=== PATIENT | female | born 1930 | race Caucasian/White ===

== ENCOUNTER 2017-02-25 08:58 | Emergency (ER) | payer MEDICARE, OTHER ==
[2017-02-25 09:14] VITALS: BP 139/61
[2017-02-25] MEDS ORDERED: Ondansetron 4 MG Tab.DIS PO ONE (09:34)
[2017-02-25] MEDS ORDERED: Acetaminophen 325 MG Tab PO ONE (09:34)
--- NOTE | 2017-02-25 11:14 | EDM.PDOC ---
ED HPI GENERAL MEDICAL PROBLEM - General Chief Complaint: Head Injury Stated Complaint: [facility] Time Seen by Provider: 02/25/17 09:20 Source of Information: Reports: Patient, RN Notes Reviewed - History of Present Illness INITIAL COMMENTS - FREE TEXT/NARRATIVE: 87-year-old female has been brought here by [facility] for evaluation of head injury. She slipped while in the bathroom about 1-1/2-2 hours ago striking the back of her head against the toilet. There was no LOC although she may have been dazed briefly. She did have some nausea and may have had a small emesis. Therefore she was transported here by ambulance. On arrival to ED she has no headache, nausea is gone. Feel very mildly dizzy but it seems that that may be somewhat chronic for her. No chest or abdominal pain. She lives at the [facility]. Posterior Head Pain Score (Numeric/FACES): 0 - Related Data Allergies Allergy/AdvReac Type Severity Reaction Status Date / Time No Known Allergies Allergy Verified 02/25/17 09:07 Home Meds: Home Meds Acetaminophen [Tylenol] 650 mg PO DAILY 02/25/17 [History] Aspirin [Ecotrin] 81 mg PO DAILY 02/25/17 [History] Escitalopram [Lexapro] 20 mg PO DAILY 02/25/17 [History] Furosemide [Lasix] 40 mg PO DAILY 02/25/17 [History] Insulin Aspart [NovoLOG] 7 unit SQ QPM 02/25/17 [History] Insulin Aspart [NovoLOG] 13 units SQ DAILY 02/25/17 [History] Insulin Aspart [NovoLOG] 16 unit SQ QAM 02/25/17 [History] Insulin Glargine,Hum.Rec.Anlog [Lantus Solostar] 30 units SQ DAILY 02/25/17 [ History] Levothyroxine 75 mcg PO DAILY 02/25/17 [History] Lutein/Minerals/Vit A,C & E [Ocuvite] 1 tab PO DAILY 02/25/17 [History] Memantine HCl [Namenda XR] 7 mg PO DAILY 02/25/17 [History] Multivitamin [Multivitamins] 1 tab PO DAILY 02/25/17 [History] Psyllium Husk [Metamucil] 2 cap PO QPM 02/25/17 [History] atorvaSTATin [Lipitor] 10 mg PO QPM 02/25/17 [History] Past Medical History Other HEENT History: wears glasses 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 History: Reports: CAD, 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: Musculoskeletal History: Reports: Osteoarthritis Endocrine/Metabolic History: Reports: Diabetes, Type I - Past Surgical History Musculoskeletal Surgical History: Reports: Joint Replacement Other Musculoskeletal Surgeries/Procedures:: left hip Social & Family History - Tobacco Use Smoking Status *Q: Never Smoker Second Hand Smoke Exposure: No - Caffeine Use Caffeine Use: Reports: Coffee - Recreational Drug Use Recreational Drug Use: No ED ROS GENERAL - Review of Systems Review Of Systems: See Below Constitutional: Reports: Weakness (Patient did feel somewhat weak and dizzy after the fall, that has all gotten much better) HEENT: Reports: Other (She did have mild headache, that is gone) 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: Denies: Chest Pain GI/Abdominal: Reports: Nausea, Vomiting (Patient may have had a very small emesis, no further vomiting, nausea is gone). Denies: Abdominal Pain Musculoskeletal: Denies: Neck Pain, Back Pain, Leg Pain, Joint Pain Skin: Reports: Bruising (She has a very small bruise to the back of her head) Neurological: Reports: Headache (She had very minimal headache initially, that is gone). Denies: Trouble Speaking, Difficulty Walking, Weakness ED EXAM, HEAD INJURY - Physical Exam Exam: See Below General Appearance: Alert, No Apparent Distress Head: Other (There is a very small bruise to the back of her head, no swelling at this time, no bony tenderness of the head or face) Eyes: Bilateral Eye: PERRL Throat/Mouth: Normal Inspection, Normal Oropharynx Respiratory: No Respiratory Distress, Lungs Clear, Normal Breath Sounds, Chest Non-Tender 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: Regular Rate, Rhythm GI/Abdominal Exam: Soft, Non-Tender Back Exam: No: CVA Tenderness (L), CVA Tenderness (R) Extremities: Normal Inspection, Normal Range of Motion, Other (Hips pelvis remainder of lower extremities nontender). No: Leg Pain Neurologic: No Motor/Sensory Deficits Skin: Normal Color, Warm/Dry Course - Vital Signs Last Recorded V/S: Last Vital Signs Temp 98.1 F 02/25/17 09:08 Pulse 72 02/25/17 09:08 Resp 12 02/25/17 09:08 BP 139/61 02/25/17 09:08 Pulse Ox 100 02/25/17 09:08 - Orders/Labs/Meds Meds: Medications Discontinued Medications Generic Name Dose Route Start Last Admin Trade Name Arlyn PRN Reason Stop Dose Admin Acetaminophen 650 mg 02/25/17 09:34 02/25/17 09:40 Tylenol PO 02/25/17 09:35 650 mg NOW ONE Administration Ondansetron HCl 4 mg 02/25/17 09:34 02/25/17 09:40 Zofran Odt PO 02/25/17 09:35 4 mg ONETIME ONE Administration - Re-Assessments/Exams Free Text/Narrative Re-Assessment/Exam: 02/25/17 11:10. Patient continues to have no headache while here in the ED, alert normal neurologic exam, no further nausea or vomiting. Therefore I have elected to observe her for a while, head CT not clinically indicated, patient and daughters present are comfortable with that. Discharge instructions as documented Departure - Departure Time of Disposition: 11:12 Disposition: DC/[facility] Condition: Fair Clinical Impression: Fall Qualifiers: Encounter type: initial encounter Qualified Code(s): W19.XXXA - Unspecified fall, initial encounter Scalp contusion Qualifiers: Encounter type: initial encounter Qualified Code(s): S00.03XA - Contusion of scalp, initial encounter - Discharge Information Instructions: Fall Prevention in the Home, [id number], Facial or Scalp Contusion, [id number] Referrals: Fan Tompkins MD [Primary Care Provider] - Forms: ED Department Discharge Additional Instructions: Rest, ice packs if needed for swelling, Tylenol 2-3 times daily if needed for headache or other discomfort, return to ED if you do develop severe headache, repetitive vomiting or symptoms otherwise worsening in any way, follow-up clinic in 2 days for recheck if possible or otherwise early next week.
== END 2017-02-25 11:33 ==
LOC: SUPCPDRO 08:58 → JD.ED 08:58
DX: S00.03XA Contusion of scalp, initial encounter (principal); I10 Essential (primary) hypertension; I25.10 Atherosclerotic heart disease of native coronary artery without angina pectoris; M19.90 Unspecified osteoarthritis, unspecified site; E10.9 Type 1 diabetes mellitus without complications; Z96.642 Presence of left artificial hip joint; Z79.899 Other long term (current) drug therapy; Z79.82 Long term (current) use of aspirin; Z79.4 Long term (current) use of insulin; W01.198A Fall on same level from slipping, tripping and stumbling with subsequent striking against other object, initial encounter; Y92.89 Other specified places as the place of occurrence of the external cause
CPT/HCPCS: 99284; A9270

== ENCOUNTER 2017-02-25 16:10 | Inpatient (IN) | payer MEDICARE, OTHER ==
[2017-02-25] MEDS ORDERED: fentaNYL 100 MCG/2 ML SDV IVPUSH ONE (16:44)
--- NOTE | 2017-02-25 16:46 | EDM.PDOC ---
ED HPI GENERAL MEDICAL PROBLEM - General Chief Complaint: Upper Extremity Injury/Pain Stated Complaint: [facility] Time Seen by Provider: 02/25/17 16:29 Source of Information: Reports: Patient History Limitations: Reports: No Limitations - History of Present Illness INITIAL COMMENTS - FREE TEXT/NARRATIVE: The patient is an 87-year-old female comes in for evaluation after a fall. She was seen here this morning after a fall. At that time, her evaluation was negative and she was discharged home. This after noon she had a new fall. She was sitting in her recliner chair. She got up to get a glass of water. She fell somewhere in the kitchen. She is not exactly sure how it happened. She normally walks with a walker but was not using it when she fell. She doesn't think she passed out. She doesn't recall feeling lightheaded or having any chest pain, shortness of breath, or palpitations. Continues to deny headache. However she did have an episode of vomiting on her way home. She is mostly complaining of right shoulder pain. Pain in her right shoulder is moderate to severe, worse with arm movement. Denies numbness or weakness. Denies additional injury. No back pain. No chest pain or abdominal pain. She had some mild right hip pain but she states that this is resolved and does not have any additional lower extremity pain. Denies recent illness. Right Shoulder Pain Score (Numeric/FACES): 10 - Related Data Allergies Allergy/AdvReac Type Severity Reaction Status Date / Time No Known Allergies Allergy Verified 02/25/17 09:07 Home Meds: Home Meds Acetaminophen [Acetaminophen 8 Hour] 650 mg PO Q8H PRN 02/25/17 [History] Acetaminophen [Tylenol] 650 mg PO BID 02/25/17 [History] Amoxicillin 2,000 mg PO ONETIME PRN 02/25/17 [History] Aspirin [Ecotrin] 81 mg PO DAILY 02/25/17 [History] Biotin 10,000 mcg PO DAILY PRN 02/25/17 [History] Bisacodyl [Dulcolax] 10 mg RECTAL DAILY PRN 02/25/17 [History] Bismuth Subsalicylate [Pepto Bismol] 1 ml PO DAILY PRN 02/25/17 [History] Chlorhexidine Gluconate [Peridex 0.12% Rinse] 1 tsp PO TID 02/25/17 [History] Docusate Sodium [Colace] 100 mg PO BID PRN 02/25/17 [History] Escitalopram [Lexapro] 20 mg PO DAILY 02/25/17 [History] Furosemide [Lasix] 40 mg PO DAILY 02/25/17 [History] Hydrocortisone [Hydrocortisone 2.5% Crm] 1 g TOP TID PRN 02/25/17 [History] Insulin Aspart [NovoLOG] 7 unit SQ QPM 02/25/17 [History] Insulin Aspart [NovoLOG] 13 units SQ DAILY 02/25/17 [History] Insulin Aspart [NovoLOG] 16 unit SQ QAM 02/25/17 [History] Insulin Glargine,Hum.Rec.Anlog [Lantus Solostar] 30 units SQ DAILY 02/25/17 [ History] L Acidophil/B Lactis/B Longum [Florajen3] 460 mg PO DAILY 02/25/17 [History] Levothyroxine 75 mcg PO DAILY 02/25/17 [History] Loperamide [Imodium AD] 4 mg PO ONETIME PRN 02/25/17 [History] Lutein/Minerals/Vit A,C & E [Ocuvite] 1 tab PO DAILY 02/25/17 [History] Magnesium Hydroxide [Milk of Magnesia] 30 ml PO DAILY PRN 02/25/17 [History] Memantine HCl [Namenda XR] 7 mg PO DAILY 02/25/17 [History] Multivitamin [Multivitamins] 1 tab PO DAILY 02/25/17 [History] Psyllium Husk [Metamucil] 2 cap PO QPM 02/25/17 [History] Simethicone [Gas-X] 125 mg PO Q4H PRN 02/25/17 [History] Trolamine Salicylate/Aloe Vera [Aspercreme 10%] 1 g TOP DAILY PRN 02/25/17 [ History] atorvaSTATin [Lipitor] 10 mg PO QPM 02/25/17 [History] Past Medical History Other HEENT History: wears glasses 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 History: Reports: CAD, 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: Musculoskeletal History: Reports: Osteoarthritis Endocrine/Metabolic History: Reports: Diabetes, Type I - Past Surgical History Musculoskeletal Surgical History: Reports: Joint Replacement Other Musculoskeletal Surgeries/Procedures:: left hip Social & Family History - Family History Family Medical History: Noncontributory - Tobacco Use Smoking Status *Q: Never Smoker Second Hand Smoke Exposure: No - Caffeine Use Caffeine Use: Reports: None - Recreational Drug Use Recreational Drug Use: No Review of Systems - Review of Systems Review Of Systems: See Below Constitutional: Denies: Fever Eyes: Reports: No Symptoms Ears: Reports: No Symptoms Respiratory: Denies: Shortness of Breath, Cough 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: Denies: Chest Pain GI/Abdominal: Reports: Vomiting. Denies: Abdominal Pain Genitourinary: Reports: No Symptoms Musculoskeletal: Reports: Shoulder Pain, Arm Pain. Denies: Back Pain, Leg Pain Skin: Reports: No Symptoms Neurological: Denies: Headache Psychiatric: Reports: No Symptoms ED EXAM, GENERAL - Physical Exam Exam: See Below Exam Limited By: No Limitations General Appearance: Alert, WD/WN, No Apparent Distress Eye Exam: Bilateral Eye: EOMI, PERRL Ears: Normal External Exam Nose: Normal Inspection Throat/Mouth: Normal Inspection, Normal Voice, No Airway Compromise Head: Atraumatic, Normocephalic Neck: Normal Inspection, Supple, Non-Tender, Full Range of Motion Respiratory/Chest: No Respiratory Distress, Lungs Clear, Normal Breath Sounds, Chest Non-Tender 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: Normal Peripheral Pulses, Regular Rate, Rhythm, No Murmur GI/Abdominal: Soft, Non-Tender, No Distention Extremities: Other (Right upper extremity: No clavicle tenderness. Mild right shoulder tenderness in the anterior aspect. No visible deformity. Diffuse humeral tenderness, no appreciable swelling or deformity. Mild elbow tenderness , no swelling or deformity. No forearm, wrist, or hand tenderness. Distal motor/ circulation/perfusion intact. 2+ radial pulse. Skin intact throughout. Remaining extremities exams normal) Neurological: Alert, Oriented, No Motor/Sensory Deficits Psychiatric: Normal Affect, Normal Mood Skin Exam: Warm, Dry, Intact, Normal Color, No Rash Course - Vital Signs Last Recorded V/S: Last Vital Signs Temp 37.1 C 02/26/17 03:38 Pulse 78 02/26/17 03:38 Resp 16 02/26/17 00:12 BP 139/98 H 02/26/17 03:46 Pulse Ox 98 02/26/17 03:38 - Orders/Labs/Meds Orders: Active Orders 24 hr Category Date Time Status EKG 12 Lead [EKG Documentation Completion] [RC] STAT Care 02/25/17 18:23 Active Chest 1V Frontal [CR] Stat Exams 02/25/17 16:44 Taken Elbow Min 3V Rt [CR] Stat Exams 02/25/17 16:45 Taken Humerus Rt [CR] Stat Exams 02/25/17 16:45 Taken Shoulder Comp Rt [CR] Stat Exams 02/25/17 16:45 Taken Medication Orders Acetaminophen (Tylenol) 650 mg PO Q4H PRN PRN Reason: Pain (Mild 1-3)/fever Hydrocodone Bitart/Acetaminophen ([place] 325-5 Mg) 1 tab PO Q4H PRN PRN Reason: Pain (moderate 4-6) Last Admin: 02/26/17 04:56 Dose: 1 tab Admin: 02/25/17 22:31 Dose: 1 tab Albuterol/Ipratropium (Duoneb 3.0-0.5 Mg/3 Ml) 3 ml NEB Q4H PRN PRN Reason: Shortness Of Breath/wheezing Aspirin (Halfprin) 81 mg PO DAILY [facility] Bisacodyl (Dulcolax) 5 mg PO DAILY PRN PRN Reason: Constipation Bismuth Subsalicylate (Pepto Bismol) 1 ml PO DAILY PRN PRN Reason: Heartburn Chlorhexidine Gluconate (Peridex 0.12% Rinse) 5 ml PO TID [facility] Last Admin: 02/25/17 22:30 Dose: 5 ml Citalopram Hydrobromide (Celexa) 40 mg PO DAILY [facility] Dextrose/Water (Dextrose 50% In Water) 50 ml IVPUSH ASDIRECTED PRN PRN Reason: Hypoglycemia Docusate Sodium (Colace) 100 mg PO BID PRN PRN Reason: Constipation Hydralazine HCl (Apresoline) 10 mg IVPUSH Q4H PRN PRN Reason: Hypertension Hydromorphone HCl (Dilaudid) 0.25 mg IVPUSH Q2H PRN PRN Reason: Pain (severe 7-10) Last Admin: 02/26/17 00:20 Dose: 0.25 mg Promethazine HCl 12.5 mg/ (Sodium Chloride) 50.5 mls @ 100 mls/hr IV Q6H PRN PRN Reason: Nausea/Vomiting Sodium Chloride (Normal Saline) 1,000 mls @ 75 mls/hr IV ASDIRECTED [facility] Last Admin: 02/25/17 22:37 Dose: 75 mls/hr Insulin Aspart (Novolog) 7 unit SUBCUT QPM [facility] Insulin Aspart (Novolog) 16 unit SUBCUT QAM [facility] Insulin Aspart (Novolog) 13 unit SUBCUT WITHLUNCH [facility] Insulin Detemir (Levemir) 30 unit SUBCUT DAILY [facility] Levothyroxine Sodium (Levothyroxine) 75 mcg PO DAILY [facility] Loperamide HCl (Imodium) 4 mg PO ONETIME PRN PRN Reason: Diarrhea Lorazepam (Ativan) 0.25 mg IV Q6H PRN PRN Reason: Anxiety Magnesium Hydroxide (Milk Of Magnesia) 30 ml PO DAILY PRN PRN Reason: Constipation Magnesium Sulfate (Pharmacy To Dose - Magnesium Replacement) 1 dose .XX ASDIRECTED [facility] Metoprolol Tartrate (Lopressor) 5 mg IVPUSH Q4H PRN PRN Reason: Tachycardia Morphine Sulfate (Morphine) 2 mg IVPUSH Q2H PRN PRN Reason: Pain Last Admin: 02/25/17 19:03 Dose: 2 mg Multivitamins (Thera) 1 each PO DAILY [facility] Non-Formulary Medication (Biotin [Biotin]) 10,000 mcg PO DAILY PRN PRN Reason: Dryness Non-Formulary Medication (Hydrocortisone) 1 g TOP TID PRN PRN Reason: Rash Non-Formulary Medication (L Acidophil/B Lactis/B Longum [Florajen3]) 460 mg PO DAILY [facility] Non-Formulary Medication (Memantine Hcl) 7 mg PO DAILY [facility] Non-Formulary Medication (Trolamine Salicylate/Aloe Vera) 1 g TOP DAILY PRN PRN Reason: Pain Ondansetron HCl (Zofran) 4 mg IV Q6H PRN PRN Reason: Nausea/Vomiting Polyethylene Glycol (Miralax) 17 gm PO DAILY PRN PRN Reason: Constipation Potassium Chloride (Pharmacy To Dose - Potassium Replacement) 1 dose .XX ASDIRECTED [facility] Psyllium Husk (Metamucil Sugar Free) 2 packet PO QPM [facility] Senna/Docusate Sodium (Senna Plus) 1 tab PO BID PRN PRN Reason: Constipation Simethicone (Simethicone) 125 mg PO Q4H PRN PRN Reason: Gas Simvastatin (Zocor) 10 mg PO BEDTIME [facility] Last Admin: 02/25/17 22:30 Dose: 10 mg Temazepam (Restoril) 7.5 mg PO BEDTIME PRN PRN Reason: Sleep Vit A/Vit C/Vit E/Selen/Cu/Zn/Lutei (Icaps Mv) 1 tab PO DAILY DOUG Labs: Laboratory Tests 02/25/17 02/25/17 02/25/17 Range/Units 16:30 16:30 16:30 WBC 12.32 H (3.98-10.04) K/mm3 RBC 3.81 L (3.98-5.22) M/mm3 Hgb 11.7 (11.2-15.7) gm/L Hct 35.5 (34.1-44.9) % MCV 93.2 (79.4-94.8) fl MCH 30.7 (25.6-32.2) pg MCHC 33.0 (32.2-35.5) g/dl RDW Std Deviation 44.6 (36.4-46.3) fL Plt Count 230 (182-369) K/mm3 MPV 10.8 (9.4-12.3) fl Neut % (Auto) 78.8 H (34.0-71.1) % Lymph % (Auto) 10.5 L (19.3-51.7) % [place] % (Auto) 8.8 (4.7-12.5) % Eos % (Auto) 1.2 (0.7-5.8) Baso % (Auto) 0.3 (0.1-1.2) % Neut # (Auto) 9.71 H (1.56-6.13) K/mm3 Lymph # (Auto) 1.29 (1.18-3.74) K/mm3 [place] # (Auto) 1.08 H (0.24-0.36) K/mm3 Eos # (Auto) 0.15 (0.04-0.36) K/mm3 Baso # (Auto) 0.04 (0.01-0.08) K/mm3 Sodium 140 (136-145) mEq/L Potassium 4.0 (3.5-5.1) mEq/L Chloride 103 (98-107) mEq/L Carbon Dioxide 28 (21-32) mEq/L Anion Gap 13.0 (5-15) BUN 9 (7-18) mg/dL Creatinine 1.5 H (0.55-1.02) mg/dL Est Cr Clr Drug Dosing 25.20 mL/min Estimated GFR (MDRD) 33 (>60) mL/min BUN/Creatinine Ratio 6.0 L (14-18) Glucose 152 H (83-115) mg/dL Calcium 9.0 (8.5-10.1) mg/dL Total Bilirubin 0.6 (0.2-1.0) mg/dL AST 21 (15-37) U/L ALT 19 (14-59) U/L Alkaline Phosphatase 83 (46-116) U/L CK-MB (CK-2) 0.7 (0-3.6) ng/ml Troponin I 0.085 H* (0.00-0.056) ng/mL Total Protein 7.1 (6.4-8.2) g/dl Albumin 3.4 (3.4-5.0) g/dl Globulin 3.7 gm/dL Albumin/Globulin Ratio 0.9 L (1-2) Meds: Medications Generic Name Dose Route Start Last Admin Trade Name Freq PRN Reason Stop Dose Admin Acetaminophen 650 mg 02/25/17 20:10 Tylenol PO Q4H PRN Pain (Mild 1-3)/fever Hydrocodone Bitart/Acetaminophen 1 tab 02/25/17 20:10 02/26/17 04:56 [place] 325-5 Mg PO 1 tab Q4H PRN Administration Pain (moderate 4-6) Albuterol/Ipratropium 3 ml 02/25/17 20:10 Duoneb 3.0-0.5 Mg/3 Ml NEB Q4H PRN Shortness Of Breath/wheezing Aspirin 81 mg 02/26/17 09:00 Halfprin PO DAILY DOUG Bisacodyl 5 mg 02/25/17 20:10 Dulcolax PO DAILY PRN Constipation Bismuth Subsalicylate 1 ml 02/25/17 20:18 Pepto Bismol PO DAILY PRN Heartburn Chlorhexidine Gluconate 5 ml 02/25/17 21:00 02/25/17 22:30 Peridex 0.12% Rinse PO 5 ml TID DOUG Administration Citalopram Hydrobromide 40 mg 02/26/17 09:00 Celexa PO DAILY DOUG Dextrose/Water 50 ml 02/25/17 20:59 Dextrose 50% In Water IVPUSH ASDIRECTED PRN Hypoglycemia Docusate Sodium 100 mg 02/25/17 20:10 Colace PO BID PRN Constipation Hydralazine HCl 10 mg 02/25/17 20:20 Apresoline IVPUSH Q4H PRN Hypertension Hydromorphone HCl 0.25 mg 02/25/17 20:10 02/26/17 00:20 Dilaudid IVPUSH 0.25 mg Q2H PRN Administration Pain (severe 7-10) Promethazine HCl 12.5 mg/ 50.5 mls @ 100 mls/hr 02/25/17 20:10 Sodium Chloride IV Q6H PRN Nausea/Vomiting Sodium Chloride 1,000 mls @ 75 mls/hr 02/25/17 20:15 02/25/17 22:37 Normal Saline IV 75 mls/hr ASDIRECTED [facility] Administration Insulin Aspart 7 unit 02/26/17 18:00 Novolog SUBCUT QPM [facility] Insulin Aspart 16 unit 02/26/17 08:00 Novolog SUBCUT QAM [facility] Insulin Aspart 13 unit 02/26/17 11:00 Novolog SUBCUT WITHLUNCH [facility] Insulin Detemir 30 unit 02/26/17 09:00 Levemir SUBCUT DAILY [facility] Levothyroxine Sodium 75 mcg 02/26/17 09:00 Levothyroxine PO DAILY [facility] Loperamide HCl 4 mg 02/25/17 20:36 Imodium PO ONETIME PRN Diarrhea Lorazepam 0.25 mg 02/25/17 20:10 Ativan IV Q6H PRN Anxiety Magnesium Hydroxide 30 ml 02/25/17 20:18 Milk Of Magnesia PO DAILY PRN Constipation Magnesium Sulfate 1 dose 02/25/17 20:30 Pharmacy To Dose - Magnesium Replacement .XX ASDIRECTED [facility] Metoprolol Tartrate 5 mg 02/25/17 20:20 Lopressor IVPUSH Q4H PRN Tachycardia Morphine Sulfate 2 mg 02/25/17 18:55 02/25/17 19:03 Morphine IVPUSH 2 mg Q2H PRN Administration Pain Multivitamins 1 each 02/26/17 09:00 Thera PO DAILY D[facility] Non-Formulary Medication 10,000 mcg 02/25/17 20:18 Biotin [Biotin] PO DAILY PRN Dryness Non-Formulary Medication 1 g 02/25/17 20:18 Hydrocortisone TOP TID PRN Rash Non-Formulary Medication 460 mg 02/26/17 09:00 L Acidophil/B Lactis/B Longum [Florajen3] PO DAILY [facility] Non-Formulary Medication 7 mg 02/26/17 09:00 Memantine Hcl PO DAILY [facility] Non-Formulary Medication 1 g 02/25/17 20:18 Trolamine Salicylate/Aloe Vera TOP DAILY PRN Pain Ondansetron HCl 4 mg 02/25/17 20:10 Zofran IV Q6H PRN Nausea/Vomiting Polyethylene Glycol 17 gm 02/25/17 20:10 Miralax PO DAILY PRN Constipation Potassium Chloride 1 dose 02/25/17 20:30 Pharmacy To Dose - Potassium Replacement .XX ASDIRECTED [facility] Psyllium Husk 2 packet 02/26/17 18:00 Metamucil Sugar Free PO QPM [facility] Senna/Docusate Sodium 1 tab 02/25/17 20:10 Senna Plus PO BID PRN Constipation Simethicone 125 mg 02/25/17 20:18 Simethicone PO Q4H PRN Gas Simvastatin 10 mg 02/25/17 21:00 02/25/17 22:30 Zocor PO 10 mg BEDTIME DOUG Administration Temazepam 7.5 mg 02/25/17 20:10 Restoril PO BEDTIME PRN Sleep Vit A/Vit C/Vit E/Selen/Cu/Zn/Lutei 1 tab 02/26/17 09:00 Icaps Mv PO DAILY [facility] Discontinued Medications Generic Name Dose Route Start Last Admin Trade Name Freq PRN Reason Stop Dose Admin Docusate Sodium 100 mg 02/25/17 20:18 Colace PO BID PRN Constipation Fentanyl 25 mcg 02/25/17 16:44 02/25/17 17:18 Sublimaze IVPUSH 02/25/17 16:45 25 mcg ONETIME ONE Administration Insulin Aspart 13 unit 02/26/17 09:00 Novolog SUBCUT DAILY [facility] - Radiology Interpretation Free Text/Narrative:: CT head neg. - Re-Assessments/Exams Free Text/Narrative Re-Assessment/Exam: 02/25/17 xr shows proximal humerus fracture with mild displacement. Will treat with sling. No additional bony abnormality noted. EKG shows NSR, no ST elevation, intervals normal. Trop mildly elevated at 0.085 - possible that her falls are related to syncopal episodes (difficult to discern in this alzheimer' s patient) vs. acute coronary syndrome vs. trop leak. She has now had two significant falls today requiring ED evaluation which is unusual for her. She also now has a broken arm so will not be able to safely ambulate with a walker. It is unsafe for her to back to assisted living at this time. Discussed with Dr. Currie who agrees to admit the patient. Departure - Departure Time of Disposition: 18:00 Disposition: Admitted As Inpatient 67 Clinical Impression: Acute coronary syndrome, Renal insufficiency Fall Qualifiers: Encounter type: initial encounter Qualified Code(s): W19.XXXA - Unspecified fall, initial encounter Fracture, humerus, anatomical neck Qualifiers: Encounter type: initial encounter Fracture type: closed Laterality: right Qualified Code(s): S42.291A - Other displaced fracture of upper end of right humerus, initial encounter for closed fracture - Discharge Information - My Orders Last 24 Hours: My Active Orders 02/25/17 16:44 Chest 1V Frontal [CR] Stat 02/25/17 16:45 Elbow Min 3V Rt [CR] Stat Humerus Rt [CR] Stat Shoulder Comp Rt [CR] Stat 02/25/17 18:23 EKG 12 Lead [EKG Documentation Completion] [RC] STAT - Assessment/Plan Last 24 Hours: My Active Orders 02/25/17 16:44 Chest 1V Frontal [CR] Stat 02/25/17 16:45 Elbow Min 3V Rt [CR] Stat Humerus Rt [CR] Stat Shoulder Comp Rt [CR] Stat 02/25/17 18:23 EKG 12 Lead [EKG Documentation Completion] [RC] STAT
--- NOTE | 2017-02-25 17:37 | CT ---
Head CT Technique: Multiple axial sections through the brain were obtained. Intravenous contrast was not utilized. Comparison: No previous intracranial imaging is available. Findings: Ventricles along with basal cisterns and sulci over the convexities are moderately prominent. 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 Mild diminished density is noted within the subcortical and periventricular white matter compatible with small vessel ischemic demyelination change. No other abnormal parenchymal densities are seen. No evidence of intracranial hemorrhage. No midline shift or mass effect is seen. Slight atherosclerotic calcification is seen within the left vertebral vessel and within the carotid siphon. Bone window settings were reviewed which shows no discrete calvarial abnormality. Mild mucosal thickening seen within the inferior right maxillary sinus which is likely chronic. Impression: 1. Sinus findings which are felt to be chronic. 2. Mild senescent change as described above. 3. Nothing acute is appreciated on noncontrast head CT exam. Diagnostic code #2
[2017-02-25] MEDS ORDERED: Morphine 4 MG/ML Syringe IVPUSH PRN (18:55)
--- NOTE | 2017-02-25 20:01 | PCM.HP ---
H&P History of Present Illness - General Date of Service: 02/25/17 Admit Problem/Dx: Admission Diagnosis/Problem Admission Diagnosis/Problem Syncope and collapse Source of Information: Patient, Old Records, Provider, RN Notes Reviewed History Limitations: Reports: Physical Impairment, Other (Baseline Dementia) - History of Present Illness Initial Comments - Free Text/Narative: This is an 87 yo elderly white female with past medical hx/o impaired vision, hypertension, coronary artery disease, osteoarthritis/DJD, osteoporosis, type 1 diabetes, hypothyroidism, depression, and memory impairment/dementia who presents to the emergency department for evaluation after a recurrent fall and was found to have right humerus fracture. Patient was brought here early this morning secondary to what appears to be mechanical fall. She was in the bathroom when she slipped and struck the back of her head against the toilet. Patient reports no prodromal symptoms. No reports of loss of consciousness. She did have some nausea and small emesis at that time. She admits to some mild dizziness but this appears to be chronic to her. Her initial workup this morning was fairly benign. Patient came back this afternoon after she fell somewhere in the kitchen for the second time. Patient normally uses a walker to ambulate but at that time, she was not using it. Again, there were no reports of prodromal symptoms. No loss of consciousness. She does not recall feeling lightheaded or dizzy or any symptoms prior to the fall. She denies any headaches or any neurologic deficits. Currently, she reports right shoulder pain that is moderate to severe in nature and worse with movement. She denies any associated numbness weakness or tingling. She denies any neck, back, or flank pain. She admits however to some mild right hip pain but has since resolved. She denies any systemic symptoms. She further denies any other lower extremity pain. Follow-up workup lab in the emergency department shows a CBC remarkable for WBC of 12.32, RBC of 3.81, neutrophils of 78.8%, lymphocytes of 10.5%. Her chemistry is remarkable for creatinine of 1.5, glucose of 152, and troponin of 0.085. Head CT scan report reads no acute intra-cranial abnormality. Chest x- ray shows no acute abnormality. Elbow and shoulder x-ray both shows noted acute abnormality. Right humerus x-ray is positive for proximal fracture-surgical neck. Patient is being admitted for medical management of proximal humerus fracture and status post fall. She is DNR/DNI. Right Shoulder Pain Score (Numeric/FACES): 10 R Pelvis Pain Score (Numeric/FACES): 10 - Related Data Allergies/Adverse Reactions: Allergies Allergy/AdvReac Type Severity Reaction Status Date / Time No Known Allergies Allergy Verified 02/25/17 09:07 Home Medications: Home Meds Acetaminophen [Acetaminophen 8 Hour] 650 mg PO Q8H PRN 02/25/17 [History] Acetaminophen [Tylenol] 650 mg PO BID 02/25/17 [History] Amoxicillin 2,000 mg PO ONETIME PRN 02/25/17 [History] Aspirin [Ecotrin] 81 mg PO DAILY 02/25/17 [History] Biotin 10,000 mcg PO DAILY PRN 02/25/17 [History] Bisacodyl [Dulcolax] 10 mg RECTAL DAILY PRN 02/25/17 [History] Bismuth Subsalicylate [Pepto Bismol] 1 ml PO DAILY PRN 02/25/17 [History] Chlorhexidine Gluconate [Peridex 0.12% Rinse] 1 tsp PO TID 02/25/17 [History] Docusate Sodium [Colace] 100 mg PO BID PRN 02/25/17 [History] Escitalopram [Lexapro] 20 mg PO DAILY 02/25/17 [History] Furosemide [Lasix] 40 mg PO DAILY 02/25/17 [History] Hydrocortisone [Hydrocortisone 2.5% Crm] 1 g TOP TID PRN 02/25/17 [History] Insulin Aspart [NovoLOG] 7 unit SQ QPM 02/25/17 [History] Insulin Aspart [NovoLOG] 13 units SQ DAILY 02/25/17 [History] Insulin Aspart [NovoLOG] 16 unit SQ QAM 02/25/17 [History] Insulin Glargine,Hum.Rec.Anlog [Lantus Solostar] 30 units SQ DAILY 02/25/17 [ History] L Acidophil/B Lactis/B Longum [Florajen3] 460 mg PO DAILY 02/25/17 [History] Levothyroxine 75 mcg PO DAILY 02/25/17 [History] Loperamide [Imodium AD] 4 mg PO ONETIME PRN 02/25/17 [History] Lutein/Minerals/Vit A,C & E [Ocuvite] 1 tab PO DAILY 02/25/17 [History] Magnesium Hydroxide [Milk of Magnesia] 30 ml PO DAILY PRN 02/25/17 [History] Memantine HCl [Namenda XR] 7 mg PO DAILY 02/25/17 [History] Multivitamin [Multivitamins] 1 tab PO DAILY 02/25/17 [History] Psyllium Husk [Metamucil] 2 cap PO QPM 02/25/17 [History] Simethicone [Gas-X] 125 mg PO Q4H PRN 02/25/17 [History] Trolamine Salicylate/Aloe Vera [Aspercreme 10%] 1 g TOP DAILY PRN 02/25/17 [ History] atorvaSTATin [Lipitor] 10 mg PO QPM 02/25/17 [History] Past Medical History Other HEENT History: wears glasses 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 History: Reports: CAD, Hypertension [employer] History: Reports: Musculoskeletal History: Reports: Osteoarthritis Endocrine/Metabolic History: Reports: Diabetes, Type I - Past Surgical History Musculoskeletal Surgical History: Reports: Joint Replacement Other Musculoskeletal Surgeries/Procedures:: left hip Social & Family History - Family History Family Medical History: Noncontributory - Tobacco Use Smoking Status *Q: Never Smoker Second Hand Smoke Exposure: No - Caffeine Use Caffeine Use: Reports: None - Recreational Drug Use Recreational Drug Use: No H&P Review of Systems - Review of Systems: Review Of Systems: See Below General: Reports: Weakness. Denies: Fever, Chills, Malaise, Fatigue HEENT: Reports: No Symptoms Pulmonary: Denies: Shortness of Breath Gastrointestinal: Reports: Nausea, Vomiting. Denies: Abdominal Pain Genitourinary: Reports: No Symptoms Musculoskeletal: Reports: Shoulder Pain, Arm Pain, Joint Pain Skin: Reports: Bruising. Denies: Cyanosis, Mottled, Pallor, Diaphoresis, Rash, Erythema, Wound Psychiatric: Denies: Depression, Anxiety, Agitation, Cravings, Hallucinations, Suicidal Ideation Neurological: Reports: Confusion (Baseline Dementia), Difficulty Walking, Weakness, Gait Disturbance. Denies: Dizziness, Headache, Numbness, Paresthesia , Pre-Existing Deficit, Seizure, Syncope, Tingling, Tremors, Trouble Speaking, Change in Speech Hematologic/Lymphatic: Reports: No Symptoms Immunologic: Reports: No Symptoms Exam - Exam Exam: See Below - Vital Signs Vital Signs: Last Vital Signs Temp 36.6 C 02/25/17 16:16 Pulse 77 02/25/17 16:16 Resp 20 02/25/17 16:16 BP 126/61 02/25/17 16:16 Pulse Ox 99 02/25/17 16:16 Weight: 162 kg - Exam General: Alert, Cooperative, Mild Distress HEENT: Conjunctiva Clear, EACs Clear, Mucosa Moist & [place], Nares Patent, Normal Nasal Septum, Pupils Equal, Pupils Reactive, TMs Clear, Other (bruise at the back of her head, no bony tenderness or edema), PERRLA Neck: Supple, Trachea Midline, +2 Carotid Pulse wo Bruit. No: JVD Lungs: Normal Respiratory Effort, Decreased Breath Sounds 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: Regular Rate, Regular Rhythm. No: Systolic Murmur, Diastolic Murmur GI/Abdominal Exam: Normal Bowel Sounds, Soft, Non-Tender, No Organomegaly, No Distention, No Abnormal Bruit, No Mass (Female) Exam: Deferred, Other (No suprapubic tenderness) Rectal (Female) Exam: Deferred Back Exam: Normal Inspection, Decreased Range of Motion, Paraspinal Tenderness, Vertebral Tenderness Extremities: Normal Inspection, Normal Range of Motion, Non-Tender, No Pedal Edema, Normal Capillary Refill, Limited Range of Motion (Unable to lift leg up due to pain), Other (Right Shoulder: Tender on palpation. No obvious deformity. Diffuse humeral tenderness, no swelling or deformity. Elbow is midly tender, no edema or defomity. No wirst or hand tenderness) Peripheral Pulses: 2+: Posterior Tibial (L), Posterior Tibial (R), Dorsalis Pedis (L), Dorsalis Pedis (R) Skin: Warm, Dry, Intact Neuro Extensive - Mental Status: Alert, Oriented x3. No: Memory Intact Neuro Extensive - Motor, Sensory, Reflexes: CN II-XII Intact (very limited due to pain/discomfort with movement ), Abnormal Gait Psychiatric: Alert, Normal Affect, Normal Mood. No: Anxious, Depressed, Agitated, Suicidal Ideation, Homicidal Ideation, Hallucinations - Patient Data Lab Results Last 24 hrs: Laboratory Results - last 24 hr 02/25/17 02/25/17 Range/Units 16:30 16:30 WBC 12.32 H (3.98-10.04) K/mm3 RBC 3.81 L (3.98-5.22) M/mm3 Hgb 11.7 (11.2-15.7) gm/L Hct 35.5 (34.1-44.9) % MCV 93.2 (79.4-94.8) fl MCH 30.7 (25.6-32.2) pg MCHC 33.0 (32.2-35.5) g/dl RDW Std Deviation 44.6 (36.4-46.3) fL Plt Count 230 (182-369) K/mm3 MPV 10.8 (9.4-12.3) fl Neut % (Auto) 78.8 H (34.0-71.1) % Lymph % (Auto) 10.5 L (19.3-51.7) % [place] % (Auto) 8.8 (4.7-12.5) % Eos % (Auto) 1.2 (0.7-5.8) Baso % (Auto) 0.3 (0.1-1.2) % Neut # (Auto) 9.71 H (1.56-6.13) K/mm3 Lymph # (Auto) 1.29 (1.18-3.74) K/mm3 [place] # (Auto) 1.08 H (0.24-0.36) K/mm3 Eos # (Auto) 0.15 (0.04-0.36) K/mm3 Baso # (Auto) 0.04 (0.01-0.08) K/mm3 Sodium 140 (136-145) mEq/L Potassium 4.0 (3.5-5.1) mEq/L Chloride 103 (98-107) mEq/L Carbon Dioxide 28 (21-32) mEq/L Anion Gap 13.0 (5-15) BUN 9 (7-18) mg/dL Creatinine 1.5 H (0.55-1.02) mg/dL Est Cr Clr Drug Dosing 25.20 mL/min Estimated GFR (MDRD) 33 (>60) mL/min BUN/Creatinine Ratio 6.0 L (14-18) Glucose 152 H (83-115) mg/dL Calcium 9.0 (8.5-10.1) mg/dL Total Bilirubin 0.6 (0.2-1.0) mg/dL AST 21 (15-37) U/L ALT 19 (14-59) U/L Alkaline Phosphatase 83 (46-116) U/L Troponin I 0.085 H* (0.00-0.056) ng/mL Total Protein 7.1 (6.4-8.2) g/dl Albumin 3.4 (3.4-5.0) g/dl Globulin 3.7 gm/dL Albumin/Globulin Ratio 0.9 L (1-2) Result Diagrams: 02/26/17 06:07 02/26/17 06:07 *Q Meaningful Use (ADM) - VTE *Q VTE Criteria *Q: - Stroke *Q Stroke Criteria *Q: - AMI *Q AMI Criteria *Q: Problem List Initiated/Reviewed/Updated: Yes Orders Last 24hrs: Active Orders 24 hr Category Date Time Status Patient Status [ADT] Routine ADT 02/25/17 18:42 Active EKG 12 Lead [EKG Documentation Completion] [RC] STAT Care 02/25/17 18:23 Active Chest 1V Frontal [CR] Stat Exams 02/25/17 16:44 Taken Elbow Min 3V Rt [CR] Stat Exams 02/25/17 16:45 Taken Humerus Rt [CR] Stat Exams 02/25/17 16:45 Taken Shoulder Comp Rt [CR] Stat Exams 02/25/17 16:45 Taken Morphine Med 02/25/17 18:55 Active 2 mg IVPUSH Q2H PRN Medication Orders Morphine Sulfate (Morphine) 2 mg IVPUSH Q2H PRN PRN Reason: Pain Last Admin: 02/25/17 19:03 Dose: 2 mg Assessment/Plan Comment:: Assessment/Plan; Acute: Recurrent Fall - Unclear in etiology but highly suspect due to mechanical fall - Risk Factors: Impaired Vision, DM, HTN, Osteoporosis, Dementia and OA/DJD - No documented hypoglycemia or hypotension - She is not on narcotics - PT/OT to eval - Fall Precautions - Vit D and Thyroid Panel Right Humerus Fracture - X-Ray: Surgical Neck Fx Within Right Proximal Humerus - S/p Fall - Conservative Management - PT/OT to follow - Sling and Swathe - Pain Management - Follow up Ortho Outpatient since we do not have inpatient services available Scalp Contusion - S/p Fall - Head CT scan: no acute intra-cranial abnormality - No neurologic complaints - Monitor Elevated Troponin Level - Likely from troponin leak - Initial Troponin is 0.085 - Initial EKG shows no acute ST-T wave changes - CE x2 and follow up EKG in AM High Fall Risk Chronic: Impaired Vision HTN HLD CAD DM2 Hypothyroidism OA/DJD Osteoporosis, DEXA Scan 01/14/17 Dementia Depression Plan: Admit to Med-Surg Routine AM Labs Resume Home Meds Fall Precautions PT/OT consult Dietary consult for Osteoporosis SW/CM for d/c planning Possible Rehab/SNF if not NH placement Additional orders as above Code status: DNR/DNI
[2017-02-25] MEDS ORDERED: LORazepam 2 MG/ML MDV IV PRN (20:10)
[2017-02-25] MEDS ORDERED: Temazepam 7.5 MG Cap PO PRN (20:10)
[2017-02-25] MEDS ORDERED: Acetaminophen 325 MG Tab PO PRN (20:10)
[2017-02-25] MEDS ORDERED: Polyethylene Glycol 3350 Powder 17 GM Packet PO PRN (20:10)
[2017-02-25] MEDS ORDERED: Docusate Sodium 100 MG Cap PO PRN ×2 (20:10→20:18)
[2017-02-25] MEDS ORDERED: HYDROmorphone 1 MG/ML Syringe IVPUSH PRN (20:10)
[2017-02-25] MEDS ORDERED: Albuterol/Ipratropium 3.0-0.5 MG/3 ML Neb Soln NEB PRN (20:10)
[2017-02-25] MEDS ORDERED: Bisacodyl 5 MG Tab PO PRN (20:10)
[2017-02-25] MEDS ORDERED: Ondansetron 4 MG/2 ML SDV IV PRN (20:10)
[2017-02-25] MEDS ORDERED: Promethazine 12.5 MG in Sodium Chloride 0.9% 50 ML IV PRN (20:10)
[2017-02-25] MEDS ORDERED: Simethicone 80 MG Tab.Chew PO PRN (20:18)
[2017-02-25] MEDS ORDERED: Non-Formulary Medication 1 Each (Biotin [Biotin] 10,000 MCG) PO PRN (20:18)
[2017-02-25] MEDS ORDERED: Bismuth Subsalicylate 262 MG/15 ML Susp 236 ML Bottle PO PRN (20:18)
[2017-02-25] MEDS ORDERED: Magnesium Hydroxide 400 MG/5 ML Susp 30 ML Cup PO PRN (20:18)
[2017-02-25] MEDS ORDERED: HYDROCORTISONE TOP PRN (20:18)
[2017-02-25] MEDS ORDERED: ALOE VERA TOP PRN (20:18)
[2017-02-25] MEDS ORDERED: TROLAMINE SALICYLATE TOP PRN (20:18)
[2017-02-25] MEDS ORDERED: Metoprolol Tartrate 5 MG/5 ML SDV IVPUSH PRN (20:20)
[2017-02-25] MEDS ORDERED: hydrALAZINE 20 MG/ML SDV IVPUSH PRN (20:20)
[2017-02-25] MEDS ORDERED: Loperamide 2 MG Cap PO PRN (20:36)
[2017-02-25] MEDS ORDERED: 50% Dextrose in Water 50 ML Syringe IVPUSH PRN (20:59)
[2017-02-25] MEDS: Chlorhexidine Gluconate 0.12% Oral Rinse 15 ML Cup PO SCH (22:30)
[2017-02-25] MEDS: Simvastatin 10 MG Tab PO SCH (22:30)
[2017-02-25] MEDS: Acetaminophen/HYDROcodone 325-5 MG Tab PO PRN (22:31)
[2017-02-25] MEDS: Sodium Chloride 0.9% 1,000 ML IV SCH (22:37)
[2017-02-26] MEDS: Acetaminophen/HYDROcodone 325-5 MG Tab PO PRN ×4 (03:48→20:52)
--- NOTE | 2017-02-26 08:33 | CR ---
Right elbow: Four views of the right elbow were obtained. Small calcification is seen within the soft tissues of the anterior elbow which is felt to be incidental. Bony structures are osteopenic. No joint effusion is identified. Mild deformity of the surgical neck of the proximal humerus is seen most likely due to acute fracture. Impression: 1. Surgical neck fracture of the right humerus. 2. Osteopenia and other incidental findings. Diagnostic code #3
--- NOTE | 2017-02-26 08:33 | CR ---
Right humerus: Two views of the right humerus were obtained. Deformity of the surgical neck of the right humerus is seen which is felt compatible with fracture. Osteopenia is present. No additional abnormality is seen within the right humerus. Impression: 1. Surgical neck fracture within the right proximal humerus. Diagnostic code #3
--- NOTE | 2017-02-26 08:33 | CR ---
Right shoulder: Three views of the right shoulder were obtained. Mildly impacted surgical neck fracture is seen. Slight deformity is seen of the surgical neck. Mild degenerative change is seen within the acromioclavicular joint. No acute dislocation is seen. Impression: 1. Mildly impacted surgical neck fracture. This causes mild deformity of the humeral head. Diagnostic code #3
--- NOTE | 2017-02-26 08:33 | CR ---
Chest: Frontal view of the chest was obtained. Comparison: No previous chest x-ray. Heart size and mediastinum are within normal limits. Lungs are clear. Old mid right rib fracture is seen which appears healed. Degenerative endplate spurring is noted within the spine. Impression: 1. Incidental findings. Nothing acute is seen on frontal chest x-ray. Diagnostic code #2
[2017-02-26] MEDS: Insulin Aspart 100 Units/ML 3 ML Pen SUBCUT SCH ×3 (08:35→18:49)
[2017-02-26] MEDS: Insulin Detemir 100 Units/ML 3 ML Pen SUBCUT SCH (08:36)
[2017-02-26] MEDS: Citalopram 20 MG Tab PO SCH (08:37)
[2017-02-26] MEDS: Multivitamins with Minerals/Folic Acid/Lutein/Zeaxanth Tab PO SCH (08:38)
[2017-02-26] MEDS: Levothyroxine 75 MCG Tab PO SCH (08:38)
[2017-02-26] MEDS: Aspirin 81 MG Tab.EC PO SCH (08:38)
[2017-02-26] MEDS: Chlorhexidine Gluconate 0.12% Oral Rinse 15 ML Cup PO SCH ×3 (08:39→20:52)
[2017-02-26] MEDS: Multivitamins,Therapeutic Tab PO SCH (08:39)
[2017-02-26] MEDS ORDERED: Insulin Aspart 100 Units/ML 3 ML Pen SUBCUT SCH (09:00)
[2017-02-26] MEDS: MEMANTINE HCL 7 MG PO SCH (10:48)
[2017-02-26] MEDS: Non-Formulary Medication 1 Each (L Acidophil/B Lactis/B Longum [Florajen3] 460 MG) PO SCH (10:49)
[2017-02-26] MEDS ORDERED: Pneumococcal 13-Valent Conjugate Vaccine 0.5 ML Syringe IM ONE (11:14)
--- NOTE | 2017-02-26 12:40 | PCM.PN ---
- General Info Date of Service: 02/26/17 Admission Dx/Problem (Free Text): Admission Diagnosis/Problem Admission Diagnosis/Problem Syncope and collapse Functional Status: Reports: Pain Controlled, Tolerating Diet, Ambulating, Urinating - Review of Systems General: Reports: No Symptoms, Weakness (Improving ) HEENT: Reports: No Symptoms Pulmonary: Reports: No Symptoms 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: Reports: No Symptoms Gastrointestinal: Reports: No Symptoms Genitourinary: Reports: No Symptoms Musculoskeletal: Reports: Shoulder Pain (Right ), Arm Pain (right - fracture on x-ray), Back Pain Skin: Reports: No Symptoms Neurological: Reports: No Symptoms Psychiatric: Reports: Confusion (Mild which appears to be baseline). Denies: Depression, Anxiety, Agitation Systems Review Comment:: Patient reports that she is "Feeling good." She has increased right arm pain with movement. She states she would like to go back to her home in [place]. I reported to patient that we need to do what is best for her from a health standpoint and not discharge her until she is ready. I also discussed with her the possible need to go for rehab due to her injury. She replies that she would just like to stay in [place] at her current home. - Patient Data Vitals - Most Recent: Last Vital Signs Temp 98.8 F 02/26/17 03:38 Pulse 76 02/26/17 07:22 Resp 12 02/26/17 07:22 BP 138/57 L 02/26/17 07:22 Pulse Ox 99 02/26/17 07:22 Orthostatic Blood Pressure [ 138/57 Standing] Orthostatic Blood Pressure [ 130/89 Sitting] Orthostatic Blood Pressure [ 152/64 Supine] Weight - Most Recent: 166 lb 14.4 oz I&O - Last 24 Hours: Intake & Output 02/25/17 02/26/17 02/26/17 22:59 06:59 14:59 Intake Total 652 Output Total 150 Balance 502 Lab Results Last 24 Hours: Laboratory Results - last 24 hr 02/25/17 02/26/17 02/26/17 Range/Units 22:33 04:00 06:07 WBC 15.34 H (3.98-10.04) K/mm3 RBC 3.51 L (3.98-5.22) M/mm3 Hgb 10.8 L (11.2-15.7) gm/L Hct 32.9 L (34.1-44.9) % MCV 93.7 (79.4-94.8) fl MCH 30.8 (25.6-32.2) pg MCHC 32.8 (32.2-35.5) g/dl RDW Std Deviation 44.2 (36.4-46.3) fL Plt Count 190 (182-369) K/mm3 MPV 10.4 (9.4-12.3) fl Neut % (Auto) 81.7 H (34.0-71.1) % Lymph % (Auto) 7.6 L (19.3-51.7) % Webb % (Auto) 9.5 (4.7-12.5) % Eos % (Auto) 0.8 (0.7-5.8) Baso % (Auto) 0.1 (0.1-1.2) % Neut # (Auto) 12.52 H (1.56-6.13) K/mm3 Lymph # (Auto) 1.17 L (1.18-3.74) K/mm3 Webb # (Auto) 1.46 H (0.24-0.36) K/mm3 Eos # (Auto) 0.12 (0.04-0.36) K/mm3 Baso # (Auto) 0.02 (0.01-0.08) K/mm3 Manual Slide Review Abnormal smear Sodium (136-145) mEq/L Potassium (3.5-5.1) mEq/L Chloride (98-107) mEq/L Carbon Dioxide (21-32) mEq/L Anion Gap (5-15) BUN (7-18) mg/dL Creatinine (0.55-1.02) mg/dL Est Cr Clr Drug Dosing mL/min Estimated GFR (MDRD) (>60) mL/min BUN/Creatinine Ratio (14-18) Glucose (83-115) mg/dL POC Glucose 149 H (83-110) mg/dL Calcium (8.5-10.1) mg/dL Magnesium (1.8-2.4) mg/dl CK-MB (CK-2) (0-3.6) ng/ml Troponin I (0.00-0.056) ng/mL Urine Color Yellow (Yellow) Urine Appearance Turbid H (Clear) Urine pH 6.5 (5.0-8.0) Ur Specific [place] 1.025 (1.005-1.030) Urine Protein Trace H (Negative) Urine Glucose (UA) Negative (Negative) Urine Ketones Negative (Negative) Urine Occult Blood 1+ H (Negative) Urine Nitrite Negative (Negative) Urine Bilirubin Negative (Negative) Urine Urobilinogen 0.2 (0.2-1.0) Ur Leukocyte Esterase 3+ H (Negative) Urine RBC 20-30 H (0-5) /hpf Urine WBC 40-50 H (0-5) /hpf Ur Epithelial Cells 5-10 H (0-5) /hpf Urine Bacteria Many H (FEW) /hpf Urine Mucus Not seen (FEW) /hpf MRSA (PCR) 02/26/17 02/26/17 02/26/17 Range/Units 06:07 06:37 09:00 WBC (3.98-10.04) K/mm3 RBC (3.98-5.22) M/mm3 Hgb (11.2-15.7) gm/L Hct (34.1-44.9) % MCV (79.4-94.8) fl MCH (25.6-32.2) pg MCHC (32.2-35.5) g/dl RDW Std Deviation (36.4-46.3) fL Plt Count (182-369) K/mm3 MPV (9.4-12.3) fl Neut % (Auto) (34.0-71.1) % Lymph % (Auto) (19.3-51.7) % Webb % (Auto) (4.7-12.5) % Eos % (Auto) (0.7-5.8) Baso % (Auto) (0.1-1.2) % Neut # (Auto) (1.56-6.13) K/mm3 Lymph # (Auto) (1.18-3.74) K/mm3 Webb # (Auto) (0.24-0.36) K/mm3 Eos # (Auto) (0.04-0.36) K/mm3 Baso # (Auto) (0.01-0.08) K/mm3 Manual Slide Review Sodium 139 (136-145) mEq/L Potassium 3.9 (3.5-5.1) mEq/L Chloride 103 (98-107) mEq/L Carbon Dioxide 26 (21-32) mEq/L Anion Gap 13.9 (5-15) BUN 11 (7-18) mg/dL Creatinine 1.3 H (0.55-1.02) mg/dL Est Cr Clr Drug Dosing 29.08 mL/min Estimated GFR (MDRD) 39 (>60) mL/min BUN/Creatinine Ratio 8.5 L (14-18) Glucose 169 H (83-115) mg/dL POC Glucose 172 H (83-110) mg/dL Calcium 8.6 (8.5-10.1) mg/dL Magnesium 2.1 (1.8-2.4) mg/dl CK-MB (CK-2) 0.7 (0-3.6) ng/ml Troponin I (0.00-0.056) ng/mL Urine Color (Yellow) Urine Appearance (Clear) Urine pH (5.0-8.0) Ur Specific [place] (1.005-1.030) Urine Protein (Negative) Urine Glucose (UA) (Negative) Urine Ketones (Negative) Urine Occult Blood (Negative) Urine Nitrite (Negative) Urine Bilirubin (Negative) Urine Urobilinogen (0.2-1.0) Ur Leukocyte Esterase (Negative) Urine RBC (0-5) /hpf Urine WBC (0-5) /hpf Ur Epithelial Cells (0-5) /hpf Urine Bacteria (FEW) /hpf Urine Mucus (FEW) /hpf MRSA (PCR) Negative 02/26/17 Range/Units 11:00 WBC (3.98-10.04) K/mm3 RBC (3.98-5.22) M/mm3 Hgb (11.2-15.7) gm/L Hct (34.1-44.9) % MCV (79.4-94.8) fl MCH (25.6-32.2) pg MCHC (32.2-35.5) g/dl RDW Std Deviation (36.4-46.3) fL Plt Count (182-369) K/mm3 MPV (9.4-12.3) fl Neut % (Auto) (34.0-71.1) % Lymph % (Auto) (19.3-51.7) % Webb % (Auto) (4.7-12.5) % Eos % (Auto) (0.7-5.8) Baso % (Auto) (0.1-1.2) % Neut # (Auto) (1.56-6.13) K/mm3 Lymph # (Auto) (1.18-3.74) K/mm3 Webb # (Auto) (0.24-0.36) K/mm3 Eos # (Auto) (0.04-0.36) K/mm3 Baso # (Auto) (0.01-0.08) K/mm3 Manual Slide Review Sodium (136-145) mEq/L Potassium (3.5-5.1) mEq/L Chloride (98-107) mEq/L Carbon Dioxide (21-32) mEq/L Anion Gap (5-15) BUN (7-18) mg/dL Creatinine (0.55-1.02) mg/dL Est Cr Clr Drug Dosing mL/min Estimated GFR (MDRD) (>60) mL/min BUN/Creatinine Ratio (14-18) Glucose (83-115) mg/dL POC Glucose (83-110) mg/dL Calcium (8.5-10.1) mg/dL Magnesium (1.8-2.4) mg/dl CK-MB (CK-2) (0-3.6) ng/ml Troponin I 0.066 H* (0.00-0.056) ng/mL Urine Color (Yellow) Urine Appearance (Clear) Urine pH (5.0-8.0) Ur Specific [place] (1.005-1.030) Urine Protein (Negative) Urine Glucose (UA) (Negative) Urine Ketones (Negative) Urine Occult Blood (Negative) Urine Nitrite (Negative) Urine Bilirubin (Negative) Urine Urobilinogen (0.2-1.0) Ur Leukocyte Esterase (Negative) Urine RBC (0-5) /hpf Urine WBC (0-5) /hpf Ur Epithelial Cells (0-5) /hpf Urine Bacteria (FEW) /hpf Urine Mucus (FEW) /hpf MRSA (PCR) Med Orders - Current: Current Medications Acetaminophen (Tylenol) 650 mg PO Q4H PRN PRN Reason: Pain (Mild 1-3)/fever Hydrocodone Bitart/Acetaminophen (Debary 325-5 Mg) 1 tab PO Q4H PRN PRN Reason: Pain (moderate 4-6) Last Admin: 09/21/17 10:50 Dose: 1 tab Albuterol/Ipratropium (Duoneb 3.0-0.5 Mg/3 Ml) 3 ml NEB Q4H PRN PRN Reason: Shortness Of Breath/wheezing Aspirin (Halfprin) 81 mg PO DAILY [facility] Last Admin: 02/26/17 08:38 Dose: 81 mg Bisacodyl (Dulcolax) 5 mg PO DAILY PRN PRN Reason: Constipation Bismuth Subsalicylate (Pepto Bismol) 1 ml PO DAILY PRN PRN Reason: Heartburn Chlorhexidine Gluconate (Peridex 0.12% Rinse) 5 ml PO TID [facility] Last Admin: 02/26/17 08:39 Dose: 5 ml Citalopram Hydrobromide (Celexa) 40 mg PO DAILY [facility] Last Admin: 02/26/17 08:37 Dose: 40 mg Dextrose/Water (Dextrose 50% In Water) 50 ml IVPUSH ASDIRECTED PRN PRN Reason: Hypoglycemia Docusate Sodium (Colace) 100 mg PO BID PRN PRN Reason: Constipation Hydralazine HCl (Apresoline) 10 mg IVPUSH Q4H PRN PRN Reason: Hypertension Hydromorphone HCl (Dilaudid) 0.25 mg IVPUSH Q2H PRN PRN Reason: Pain (severe 7-10) Last Admin: 02/26/17 00:20 Dose: 0.25 mg Promethazine HCl 12.5 mg/ (Sodium Chloride) 50.5 mls @ 100 mls/hr IV Q6H PRN PRN Reason: Nausea/Vomiting Sodium Chloride (Normal Saline) 1,000 mls @ 75 mls/hr IV ASDIRECTED [facility] Last Admin: 02/25/17 22:37 Dose: 75 mls/hr Insulin Aspart (Novolog) 7 unit SUBCUT QPM [facility] Insulin Aspart (Novolog) 16 unit SUBCUT QAM [facility] Last Admin: 02/26/17 08:35 Dose: 16 units Insulin Aspart (Novolog) 13 unit SUBCUT WITHLUNCH [facility] Insulin Detemir (Levemir) 30 unit SUBCUT DAILY [facility] Last Admin: 02/26/17 08:36 Dose: 30 units Levothyroxine Sodium (Levothyroxine) 75 mcg PO DAILY [facility] Last Admin: 02/26/17 08:38 Dose: 75 mcg Loperamide HCl (Imodium) 4 mg PO ONETIME PRN PRN Reason: Diarrhea Lorazepam (Ativan) 0.25 mg IV Q6H PRN PRN Reason: Anxiety Magnesium Hydroxide (Milk Of Magnesia) 30 ml PO DAILY PRN PRN Reason: Constipation Magnesium Sulfate (Pharmacy To Dose - Magnesium Replacement) 1 dose .XX ASDIRECTED [facility] Metoprolol Tartrate (Lopressor) 5 mg IVPUSH Q4H PRN PRN Reason: Tachycardia Morphine Sulfate (Morphine) 2 mg IVPUSH Q2H PRN PRN Reason: Pain Last Admin: 02/25/17 19:03 Dose: 2 mg Multivitamins (Thera) 1 each PO DAILY [facility] Last Admin: 02/26/17 08:39 Dose: 1 each Non-Formulary Medication (Biotin [Biotin]) 10,000 mcg PO DAILY PRN PRN Reason: Dryness Non-Formulary Medication (Hydrocortisone) 1 g TOP TID PRN PRN Reason: Rash Non-Formulary Medication (L Acidophil/B Lactis/B Longum [Florajen3]) 460 mg PO DAILY [facility] Last Admin: 02/26/17 10:49 Dose: Not Given Non-Formulary Medication (Memantine Hcl) 7 mg PO DAILY [facility] Last Admin: 02/26/17 10:48 Dose: Not Given Non-Formulary Medication (Trolamine Salicylate/Aloe Vera) 1 g TOP DAILY PRN PRN Reason: Pain Ondansetron HCl (Zofran) 4 mg IV Q6H PRN PRN Reason: Nausea/Vomiting Polyethylene Glycol (Miralax) 17 gm PO DAILY PRN PRN Reason: Constipation Potassium Chloride (Pharmacy To Dose - Potassium Replacement) 1 dose .XX ASDIRECTED [facility] Psyllium Husk (Metamucil Sugar Free) 2 packet PO QPM [facility] Senna/Docusate Sodium (Senna Plus) 1 tab PO BID PRN PRN Reason: Constipation Simethicone (Simethicone) 125 mg PO Q4H PRN PRN Reason: Gas Simvastatin (Zocor) 10 mg PO BEDTIME [facility] Last Admin: 02/25/17 22:30 Dose: 10 mg Temazepam (Restoril) 7.5 mg PO BEDTIME PRN PRN Reason: Sleep Vit A/Vit C/Vit E/Selen/Cu/Zn/Lutei (Icaps Mv) 1 tab PO DAILY [facility] Last Admin: 02/26/17 08:38 Dose: 1 tab Discontinued Medications Ceftriaxone Sodium (Rocephin) 1,000 mg IVPUSH Q24H [facility] Docusate Sodium (Colace) 100 mg PO BID PRN PRN Reason: Constipation Fentanyl (Sublimaze) 25 mcg IVPUSH ONETIME ONE Stop: 02/25/17 16:45 Last Admin: 02/25/17 17:18 Dose: 25 mcg Insulin Aspart (Novolog) 13 unit SUBCUT DAILY [facility] Pneumococcal 13-Valent Conj Vacc (Prevnar 13) 0.5 ml IM .ONCE ONE Stop: 02/26/17 11:15 - Exam Quality Assessment: DVT Prophylaxis General: Alert, Oriented, Cooperative, Other (mild baseline confusion) HEENT: Pupils Equal, Pupils Reactive, Mucous Membr. Moist/[place], Other (Scalp contusion present. ) Neck: Supple, Trachea Midline, No JVD Lungs: Clear to Auscultation, Normal Respiratory Effort 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: Regular Rate, Regular Rhythm GI/Abdominal Exam: Normal Bowel Sounds, Soft, Non-Tender, No Distention (Female) Exam: Deferred Back Exam: Normal Inspection, Decreased Range of Motion, Paraspinal Tenderness, Vertebral Tenderness Extremities: Normal Capillary Refill, Arm Pain (Right arm ), Limited Range of Motion, Other (sling present suporting right arm. Pt. reports 4/10 pain, 10/10 with movement. ) Peripheral Pulses: 2+: Radial (L), Radial (R), Posterior Tibial (L), Posterior Tibial (R), Dorsalis Pedis (L), Dorsalis Pedis (R) Skin: Warm, Dry, Intact, Other (Scattered bruising ) Neurological: No New Focal Deficit, Normal Speech, Strength Equal Bilateral ( pain with testing from arm), Sensation Intact. No: Normal Gait Psy/Mental Status: Alert, Normal Affect, Normal Mood Physical Findings Comments:: Patient examined while sitting in bed. She reports right arm pain. This is fractured from her fall. - Problem List & Annotations (1) UTI (urinary tract infection) SNOMED Code(s): 45649929 Code(s): N39.0 - URINARY TRACT INFECTION, SITE NOT SPECIFIED Status: Acute Priority: Medium Current Visit: Yes Qualifiers: Urinary tract infection type: acute cystitis Hematuria presence: without hematuria Qualified Code(s): N30.00 - Acute cystitis without hematuria (2) Fracture, humerus, anatomical neck SNOMED Code(s): 492686738 Code(s): S42.293A - OTH DISP FX OF UPPER END OF UNSP HUMERUS, INIT FOR CLOS FX Status: Acute Priority: High Current Visit: Yes Qualifiers: Encounter type: initial encounter Fracture type: closed Laterality: right Qualified Code(s): S42.291A - Other displaced fracture of upper end of right humerus, initial encounter for closed fracture (3) Scalp contusion SNOMED Code(s): 49203787 Code(s): S00.03XA - CONTUSION OF SCALP, INITIAL ENCOUNTER Status: Acute Priority: Low Current Visit: No Qualifiers: Encounter type: initial encounter Qualified Code(s): S00.03XA - Contusion of scalp, initial encounter - Problem List Review Problem List Initiated/Reviewed/Updated: Yes - Plan Plan:: Assessment/Plan; Acute: Recurrent Fall - Unclear in etiology but highly suspect due to mechanical fall - Risk Factors: Impaired Vision, DM, HTN, Osteoporosis, Dementia and OA/DJD - No documented hypoglycemia or hypotension - She is not on narcotics - PT/OT to eval - Fall Precautions - Vit D and Thyroid Panel - ordered Right Humeral Fracture - Conservative Management - PT/OT to follow - Sling and Swathe - Pain Management - Follow up Ortho - Outpatient Scalp Contusion - S/p Fall - Head CT scan: no acute intra-cranial abnormality - Monitor Elevated Troponin Level - Likely from troponin leak - Initial Troponin is 0.085, Follow-up is 0.066 - Initial EKG shows no acute ST-T wave changes - CE x2 - Follow up EKG ordered UTI -Asymptomatic -WBC 15.34 -Culture pending -Rocephin given -No CVA tenderness -Will continue to monitor High Fall Risk Chronic: Impaired Vision HTN HLD CAD DM2 Hypothyroidism OA/DJD Osteoporosis, DEXA Scan 01/14/17 Dementia Depression Plan: Admit to Med-Surg Routine AM Labs Resume Home Meds Fall Precautions PT/OT consult Dietary consult for Osteoporosis SW/ for d/c planning Possible Rehab/SNF if not NH placement Additional orders as above Code status: DNR/DNI
[2017-02-26] MEDS ORDERED: cefTRIAXone 1,000 MG VIAL IVPUSH SCH (12:45)
[2017-02-26] MEDS: Sodium Chloride 0.9% 1,000 ML IV SCH (12:55)
[2017-02-26] MEDS: cefTRIAXone 1 GM in Sodium Chloride 0.9% 100 ML IV SCH (13:10)
--- NOTE | 2017-02-26 16:37 | CR ---
Pelvis: AP view of the pelvis was obtained. Slightly displaced fractures are seen within the inferior and superior pubic ramus on the right side. Sclerotic area is noted within the right femoral neck believed to represent osteophytes rather than impacted fracture. Left hip prosthesis is seen. Bladder is slightly distended. Degenerative endplate spurring is noted within the visualized lower lumbar spine. Bony structures are osteopenic. Vascular calcification is noted. No additional abnormality is seen. Impression: 1. Slightly displaced inferior and superior pubic rami fractures on the right side. 2. Other incidental findings. Diagnostic code #3
--- NOTE | 2017-02-26 16:47 | PCM.SN ---
<DarrylcarltonKevin - Last Filed: 02/26/17 16:47> - Free Text/Narrative Note: PT/OT reports patient had pain over the pubic region while walking today. Was no pain noted during prior exams. ED notes were reviewed and patient did not have a pelvic x-rays performed there, however multiple other radiographs were taken. Patient sent for stat pelvic exam. Radiologist reports right-sided slightly displaced inferior and superior pubic rami factors. Patient also had minor pain upon firm downward palpation to pelvis. As noted patient does have dementia and is slightly confused however, she is able to hold a conversation. No neurovascular deficits noted to legs at this time. Discussed case with Dr. Currie, hospitalist and he will continue care of this patient. At this time she is laying in bed in her room. <Ahmet Currie - Last Filed: 02/26/17 17:13> - Free Text/Narrative Note: Will push should her X-ray through PACs and will call Ortho in [place] for further review.
[2017-02-26] MEDS: Psyllium Husk Powder Sugar Free 3.4 GM Packet PO SCH (18:50)
[2017-02-26] MEDS: Simvastatin 10 MG Tab PO SCH (20:52)
[2017-02-26] MEDS ORDERED: Denosumab 60 MG/1 ML Syringe SUBCUT ONE (21:19)
[2017-02-27] MEDS: Sodium Chloride 0.9% 1,000 ML IV SCH (02:32)
[2017-02-27] MEDS: Cholecalciferol (Vitamin D3) 1,000 Unit Tab PO SCH (08:32)
[2017-02-27] MEDS: Citalopram 20 MG Tab PO SCH (08:32)
[2017-02-27] MEDS: Calcium Carbonate 600 MG Tab PO SCH ×2 (08:32→17:52)
[2017-02-27] MEDS: Multivitamins,Therapeutic Tab PO SCH (08:32)
[2017-02-27] MEDS: Levothyroxine 75 MCG Tab PO SCH (08:32)
[2017-02-27] MEDS: Aspirin 81 MG Tab.EC PO SCH (08:32)
[2017-02-27] MEDS: Multivitamins with Minerals/Folic Acid/Lutein/Zeaxanth Tab PO SCH (08:32)
[2017-02-27] MEDS: Insulin Aspart 100 Units/ML 3 ML Pen SUBCUT SCH ×3 (08:33→17:57)
[2017-02-27] MEDS: Insulin Detemir 100 Units/ML 3 ML Pen SUBCUT SCH (08:34)
[2017-02-27] MEDS: Chlorhexidine Gluconate 0.12% Oral Rinse 15 ML Cup PO SCH ×3 (08:36→22:21)
--- NOTE | 2017-02-27 08:41 | PCM.PN ---
- General Info Date of Service: 02/27/17 Admission Dx/Problem (Free Text): Admission Diagnosis/Problem Admission Diagnosis/Problem Syncope and collapse Patient seen this morning resting comfortably in bed. Feels better today. Pain is controlled and does well with PT/OT, better if "I am still". Functional Status: Reports: Pain Controlled, Tolerating Diet, Ambulating (with walker), Urinating, New Symptoms, Incentive Spirometry - Review of Systems General: Reports: No Symptoms HEENT: Reports: No Symptoms Pulmonary: Reports: No Symptoms 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: Reports: No Symptoms Gastrointestinal: Reports: No Symptoms Genitourinary: Reports: No Symptoms Musculoskeletal: Reports: Shoulder Pain, Arm Pain, Joint Pain Skin: Reports: No Symptoms Neurological: Reports: No Symptoms Psychiatric: Reports: No Symptoms - Patient Data Vitals - Most Recent: Last Vital Signs Temp 98.4 F 02/27/17 08:16 Pulse 76 02/27/17 08:18 Resp 16 02/27/17 08:16 BP 139/61 02/27/17 08:23 Pulse Ox 93 L 02/27/17 08:18 Orthostatic Blood Pressure [ 138/57 Standing] Orthostatic Blood Pressure [ 130/89 Sitting] Orthostatic Blood Pressure [ 152/64 Supine] Weight - Most Recent: 169 lb I&O - Last 24 Hours: Intake & Output 02/26/17 02/27/17 02/27/17 22:59 06:59 14:59 Intake Total 1600 1775 Output Total 200 500 Balance 1400 1275 Lab Results Last 24 Hours: Laboratory Results - last 24 hr 02/26/17 02/26/17 02/26/17 Range/Units 06:07 06:07 09:00 WBC (3.98-10.04) K/mm3 RBC (3.98-5.22) M/mm3 Hgb (11.2-15.7) gm/L Hct (34.1-44.9) % MCV (79.4-94.8) fl MCH (25.6-32.2) pg MCHC (32.2-35.5) g/dl RDW Std Deviation (36.4-46.3) fL Plt Count (182-369) K/mm3 MPV (9.4-12.3) fl Neut % (Auto) (34.0-71.1) % Lymph % (Auto) (19.3-51.7) % [place] % (Auto) (4.7-12.5) % Eos % (Auto) (0.7-5.8) Baso % (Auto) (0.1-1.2) % Neut # (Auto) (1.56-6.13) K/mm3 Lymph # (Auto) (1.18-3.74) K/mm3 [place] # (Auto) (0.24-0.36) K/mm3 Eos # (Auto) (0.04-0.36) K/mm3 Baso # (Auto) (0.01-0.08) K/mm3 Manual Slide Review Sodium (136-145) mEq/L Potassium (3.5-5.1) mEq/L Chloride (98-107) mEq/L Carbon Dioxide (21-32) mEq/L Anion Gap (5-15) BUN (7-18) mg/dL Creatinine (0.55-1.02) mg/dL Est Cr Clr Drug Dosing mL/min Estimated GFR (MDRD) (>60) mL/min BUN/Creatinine Ratio (14-18) Glucose (83-115) mg/dL POC Glucose (83-110) mg/dL Hemoglobin A1c (4.50-6.20) % Calcium (8.5-10.1) mg/dL Troponin I (0.00-0.056) ng/mL Vitamin D 25-Hydroxy 24 L (30-100) ng/mL TSH 3rd Generation 1.398 (0.358-3.74) uIU/mL MRSA (PCR) Negative 02/26/17 02/26/17 02/26/17 Range/Units 11:00 12:49 17:22 WBC (3.98-10.04) K/mm3 RBC (3.98-5.22) M/mm3 Hgb (11.2-15.7) gm/L Hct (34.1-44.9) % MCV (79.4-94.8) fl MCH (25.6-32.2) pg MCHC (32.2-35.5) g/dl RDW Std Deviation (36.4-46.3) fL Plt Count (182-369) K/mm3 MPV (9.4-12.3) fl Neut % (Auto) (34.0-71.1) % Lymph % (Auto) (19.3-51.7) % [place] % (Auto) (4.7-12.5) % Eos % (Auto) (0.7-5.8) Baso % (Auto) (0.1-1.2) % Neut # (Auto) (1.56-6.13) K/mm3 Lymph # (Auto) (1.18-3.74) K/mm3 [place] # (Auto) (0.24-0.36) K/mm3 Eos # (Auto) (0.04-0.36) K/mm3 Baso # (Auto) (0.01-0.08) K/mm3 Manual Slide Review Sodium (136-145) mEq/L Potassium (3.5-5.1) mEq/L Chloride (98-107) mEq/L Carbon Dioxide (21-32) mEq/L Anion Gap (5-15) BUN (7-18) mg/dL Creatinine (0.55-1.02) mg/dL Est Cr Clr Drug Dosing mL/min Estimated GFR (MDRD) (>60) mL/min BUN/Creatinine Ratio (14-18) Glucose (83-115) mg/dL POC Glucose 108 118 H (83-110) mg/dL Hemoglobin A1c (4.50-6.20) % Calcium (8.5-10.1) mg/dL Troponin I 0.066 H* (0.00-0.056) ng/mL Vitamin D 25-Hydroxy (30-100) ng/mL TSH 3rd Generation (0.358-3.74) uIU/mL MRSA (PCR) 02/26/17 02/27/17 02/27/17 Range/Units 20:50 06:52 07:15 WBC 13.40 H (3.98-10.04) K/mm3 RBC 3.18 L (3.98-5.22) M/mm3 Hgb 9.7 L (11.2-15.7) gm/L Hct 30.1 L (34.1-44.9) % MCV 94.7 (79.4-94.8) fl MCH 30.5 (25.6-32.2) pg MCHC 32.2 (32.2-35.5) g/dl RDW Std Deviation 44.2 (36.4-46.3) fL Plt Count 164 L (182-369) K/mm3 MPV 9.9 (9.4-12.3) fl Neut % (Auto) 80.0 H (34.0-71.1) % Lymph % (Auto) 8.4 L (19.3-51.7) % [place] % (Auto) 9.4 (4.7-12.5) % Eos % (Auto) 2.0 (0.7-5.8) Baso % (Auto) 0.1 (0.1-1.2) % Neut # (Auto) 10.71 H (1.56-6.13) K/mm3 Lymph # (Auto) 1.12 L (1.18-3.74) K/mm3 [place] # (Auto) 1.26 H (0.24-0.36) K/mm3 Eos # (Auto) 0.27 (0.04-0.36) K/mm3 Baso # (Auto) 0.02 (0.01-0.08) K/mm3 Manual Slide Review Abnormal smear Sodium (136-145) mEq/L Potassium (3.5-5.1) mEq/L Chloride (98-107) mEq/L Carbon Dioxide (21-32) mEq/L Anion Gap (5-15) BUN (7-18) mg/dL Creatinine (0.55-1.02) mg/dL Est Cr Clr Drug Dosing mL/min Estimated GFR (MDRD) (>60) mL/min BUN/Creatinine Ratio (14-18) Glucose (83-115) mg/dL POC Glucose 248 H 128 H (83-110) mg/dL Hemoglobin A1c (4.50-6.20) % Calcium (8.5-10.1) mg/dL Troponin I (0.00-0.056) ng/mL Vitamin D 25-Hydroxy (30-100) ng/mL TSH 3rd Generation (0.358-3.74) uIU/mL MRSA (PCR) 02/27/17 02/27/17 Range/Units 07:15 07:15 WBC (3.98-10.04) K/mm3 RBC (3.98-5.22) M/mm3 Hgb (11.2-15.7) gm/L Hct (34.1-44.9) % MCV (79.4-94.8) fl MCH (25.6-32.2) pg MCHC (32.2-35.5) g/dl RDW Std Deviation (36.4-46.3) fL Plt Count (182-369) K/mm3 MPV (9.4-12.3) fl Neut % (Auto) (34.0-71.1) % Lymph % (Auto) (19.3-51.7) % [place] % (Auto) (4.7-12.5) % Eos % (Auto) (0.7-5.8) Baso % (Auto) (0.1-1.2) % Neut # (Auto) (1.56-6.13) K/mm3 Lymph # (Auto) (1.18-3.74) K/mm3 [place] # (Auto) (0.24-0.36) K/mm3 Eos # (Auto) (0.04-0.36) K/mm3 Baso # (Auto) (0.01-0.08) K/mm3 Manual Slide Review Sodium 138 (136-145) mEq/L Potassium 3.9 (3.5-5.1) mEq/L Chloride 105 (98-107) mEq/L Carbon Dioxide 24 (21-32) mEq/L Anion Gap 12.9 (5-15) BUN 9 (7-18) mg/dL Creatinine 1.1 H (0.55-1.02) mg/dL Est Cr Clr Drug Dosing 34.37 mL/min Estimated GFR (MDRD) 47 (>60) mL/min BUN/Creatinine Ratio 8.2 L (14-18) Glucose 127 H (83-115) mg/dL POC Glucose (83-110) mg/dL Hemoglobin A1c 6.30 H (4.50-6.20) % Calcium 8.5 (8.5-10.1) mg/dL Troponin I (0.00-0.056) ng/mL Vitamin D 25-Hydroxy (30-100) ng/mL TSH 3rd Generation (0.358-3.74) uIU/mL MRSA (PCR) Reid Results Last 24 Hours: Microbiology 02/26/17 04:00 Urine Culture - Preliminary Urine, Clean Catch MIXED REG DAY 1 Med Orders - Current: Current Medications Acetaminophen (Tylenol) 650 mg PO Q4H PRN PRN Reason: Pain (Mild 1-3)/fever Hydrocodone Bitart/Acetaminophen ([place] 325-5 Mg) 1 tab PO Q4H PRN PRN Reason: Pain (moderate 4-6) Last Admin: 02/26/17 20:52 Dose: 1 tab Albuterol/Ipratropium (Duoneb 3.0-0.5 Mg/3 Ml) 3 ml NEB Q4H PRN PRN Reason: Shortness Of Breath/wheezing Aspirin (Halfprin) 81 mg PO DAILY [facility] Last Admin: 02/26/17 08:38 Dose: 81 mg Bisacodyl (Dulcolax) 5 mg PO DAILY PRN PRN Reason: Constipation Bismuth Subsalicylate (Pepto Bismol) 1 ml PO DAILY PRN PRN Reason: Heartburn Calcium Carbonate/Glycine (Calcium Carbonate) 600 mg PO BIDMEALS [facility] Chlorhexidine Gluconate (Peridex 0.12% Rinse) 5 ml PO TID [facility] Last Admin: 02/26/17 20:52 Dose: 5 ml Cholecalciferol (Vitamin D3) 1,000 units PO DAILY [facility] Citalopram Hydrobromide (Celexa) 40 mg PO DAILY [facility] Last Admin: 02/26/17 08:37 Dose: 40 mg Denosumab (Prolia) 60 mg SUBCUT ONETIME ONE Stop: 02/26/17 21:20 Dextrose/Water (Dextrose 50% In Water) 50 ml IVPUSH ASDIRECTED PRN PRN Reason: Hypoglycemia Docusate Sodium (Colace) 100 mg PO BID PRN PRN Reason: Constipation Hydralazine HCl (Apresoline) 10 mg IVPUSH Q4H PRN PRN Reason: Hypertension Hydromorphone HCl (Dilaudid) 0.25 mg IVPUSH Q2H PRN PRN Reason: Pain (severe 7-10) Last Admin: 02/26/17 00:20 Dose: 0.25 mg Promethazine HCl 12.5 mg/ (Sodium Chloride) 50.5 mls @ 100 mls/hr IV Q6H PRN PRN Reason: Nausea/Vomiting Ceftriaxone Sodium 1 gm/ (Sodium Chloride) 100 mls @ 200 mls/hr IV Q24H [facility] Last Admin: 02/26/17 13:10 Dose: 200 mls/hr Insulin Aspart (Novolog) 7 unit SUBCUT QPM [facility] Last Admin: 02/26/17 18:49 Dose: 7 units Insulin Aspart (Novolog) 16 unit SUBCUT QAM [facility] Last Admin: 02/26/17 08:35 Dose: 16 units Insulin Aspart (Novolog) 13 unit SUBCUT WITHLUNCH [facility] Last Admin: 02/26/17 12:56 Dose: Not Given Insulin Detemir (Levemir) 30 unit SUBCUT DAILY [facility] Last Admin: 02/26/17 08:36 Dose: 30 units Levothyroxine Sodium (Levothyroxine) 75 mcg PO DAILY [facility] Last Admin: 02/26/17 08:38 Dose: 75 mcg Loperamide HCl (Imodium) 4 mg PO ONETIME PRN PRN Reason: Diarrhea Lorazepam (Ativan) 0.25 mg IV Q6H PRN PRN Reason: Anxiety Magnesium Hydroxide (Milk Of Magnesia) 30 ml PO DAILY PRN PRN Reason: Constipation Magnesium Sulfate (Pharmacy To Dose - Magnesium Replacement) 1 dose .XX ASDIRECTED [facility] Metoprolol Tartrate (Lopressor) 5 mg IVPUSH Q4H PRN PRN Reason: Tachycardia Morphine Sulfate (Morphine) 2 mg IVPUSH Q2H PRN PRN Reason: Pain Last Admin: 02/25/17 19:03 Dose: 2 mg Multivitamins (Thera) 1 each PO DAILY [facility] Last Admin: 02/26/17 08:39 Dose: 1 each Non-Formulary Medication (Biotin [Biotin]) 10,000 mcg PO DAILY PRN PRN Reason: Dryness Non-Formulary Medication (Hydrocortisone) 1 g TOP TID PRN PRN Reason: Rash Non-Formulary Medication (L Acidophil/B Lactis/B Longum [Florajen3]) 460 mg PO DAILY [facility] Last Admin: 02/26/17 10:49 Dose: Not Given Non-Formulary Medication (Memantine Hcl) 7 mg PO DAILY [facility] Last Admin: 02/26/17 10:48 Dose: Not Given Non-Formulary Medication (Trolamine Salicylate/Aloe Vera) 1 g TOP DAILY PRN PRN Reason: Pain Ondansetron HCl (Zofran) 4 mg IV Q6H PRN PRN Reason: Nausea/Vomiting Polyethylene Glycol (Miralax) 17 gm PO DAILY PRN PRN Reason: Constipation Potassium Chloride (Pharmacy To Dose - Potassium Replacement) 1 dose .XX ASDIRECTED [facility] Psyllium Husk (Metamucil Sugar Free) 2 packet PO QPM [facility] Last Admin: 02/26/17 18:50 Dose: 2 packet Senna/Docusate Sodium (Senna Plus) 1 tab PO BID PRN PRN Reason: Constipation Simethicone (Simethicone) 125 mg PO Q4H PRN PRN Reason: Gas Simvastatin (Zocor) 10 mg PO BEDTIME [facility] Last Admin: 02/26/17 20:52 Dose: 10 mg Temazepam (Restoril) 7.5 mg PO BEDTIME PRN PRN Reason: Sleep Vit A/Vit C/Vit E/Selen/Cu/Zn/Lutei (Icaps Mv) 1 tab PO DAILY [facility] Last Admin: 02/26/17 08:38 Dose: 1 tab Discontinued Medications Ceftriaxone Sodium (Rocephin) 1,000 mg IVPUSH Q24H [facility] Docusate Sodium (Colace) 100 mg PO BID PRN PRN Reason: Constipation Fentanyl (Sublimaze) 25 mcg IVPUSH ONETIME ONE Stop: 02/25/17 16:45 Last Admin: 02/25/17 17:18 Dose: 25 mcg Sodium Chloride (Normal Saline) 1,000 mls @ 75 mls/hr IV ASDIRECTED [facility] Last Admin: 02/27/17 02:32 Dose: 75 mls/hr Insulin Aspart (Novolog) 13 unit SUBCUT DAILY [facility] Pneumococcal 13-Valent Conj Vacc (Prevnar 13) 0.5 ml IM .ONCE ONE Stop: 02/26/17 11:15 - Exam Quality Assessment: DVT Prophylaxis General: Alert, Cooperative, No Acute Distress HEENT: Pupils Equal, EOMI, Mucous Membr. Moist/[place] Neck: Supple Lungs: Clear to Auscultation, Normal Respiratory Effort, Decreased Breath Sounds (bases) 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: Regular Rate, Regular Rhythm GI/Abdominal Exam: Normal Bowel Sounds, Soft, Non-Tender (Female) Exam: Deferred Extremities: No Pedal Edema, Normal Capillary Refill, Arm Pain, Other (CMS + to all 4 extremities) Peripheral Pulses: 2+: Radial (L), Radial (R), Dorsalis Pedis (L), Dorsalis Pedis (R) Skin: Warm, Dry, Ecchymosis (rt shoulder/upper arm) Psy/Mental Status: Alert, Normal Affect, Normal Mood - Problem List & Annotations (1) Fall SNOMED Code(s): 7723141, 386321532 Code(s): W19.XXXA - UNSPECIFIED FALL, INITIAL ENCOUNTER Status: Acute Priority: High Current Visit: Yes Qualifiers: Encounter type: initial encounter Qualified Code(s): W19.XXXA - Unspecified fall, initial encounter (2) Pelvic fracture SNOMED Code(s): 00241691 Code(s): S32.9XXA - FRACTURE OF UNSP PARTS OF LUMBOSACRAL SPINE AND PELVIS, INIT Status: Acute Priority: High Current Visit: Yes Qualifiers: Encounter type: initial encounter Pelvic bone location: multiple parts Fracture type: closed Fracture alignment: with stable disruption of pelvic ring Qualified Code(s): S32.810A - Multiple fractures of pelvis with stable disruption of pelvic ring, initial encounter for closed fracture (3) Fracture, humerus, anatomical neck SNOMED Code(s): 650839901 Code(s): S42.293A - OTH DISP FX OF UPPER END OF UNSP HUMERUS, INIT FOR CLOS FX Status: Acute Priority: High Current Visit: Yes Qualifiers: Encounter type: initial encounter Fracture type: closed Laterality: right Qualified Code(s): S42.291A - Other displaced fracture of upper end of right humerus, initial encounter for closed fracture (4) Renal insufficiency SNOMED Code(s): 116714023 Code(s): N28.9 - DISORDER OF KIDNEY AND URETER, UNSPECIFIED Status: Chronic Priority: Medium Current Visit: Yes (5) UTI (urinary tract infection) SNOMED Code(s): 89784329 Code(s): N39.0 - URINARY TRACT INFECTION, SITE NOT SPECIFIED Status: Acute Priority: Medium Current Visit: Yes Qualifiers: Urinary tract infection type: acute cystitis Hematuria presence: without hematuria Qualified Code(s): N30.00 - Acute cystitis without hematuria (6) Acute coronary syndrome SNOMED Code(s): 750545225 Code(s): I24.9 - ACUTE ISCHEMIC HEART DISEASE, UNSPECIFIED Status: Resolved Priority: High Current Visit: Yes - Problem List Review Problem List Initiated/Reviewed/Updated: Yes - Plan Plan:: Assessment/Plan; Acute: Recurrent Fall - Unclear in etiology but highly suspect due to mechanical fall-- newly dx AUTI - Risk Factors: Impaired Vision, DM, HTN, Osteoporosis, Dementia and OA/DJD - No documented hypoglycemia or hypotension - She is not on narcotics - PT/OT to eval - Fall Precautions - Vit D and Thyroid Panel -low vit D level of 24; start supplement -TSH WNL of 1.3 Right Humerus Fracture - X-Ray: Surgical Neck Fx Within Right Proximal Humerus - S/p Fall - Conservative Management - PT/OT to follow - Sling and Swathe - Pain Management - Follow up Ortho Outpatient since we do not have inpatient services available Right pelvic fracture -Discussed with Ortho via phone, see Dr. Currie note from yesterday -Recommendations for WBAT with FWW -PT/OT -Pain management -Fup with Ortho as outpatient, Dr. Cooney in 2 weeks Scalp Contusion - S/p Fall - Head CT scan: no acute intra-cranial abnormality - No neurologic complaints; negative neuro checks - Monitor Elevated Troponin Level - Likely from troponin leak - Initial Troponin is 0.085--improved to 0.06 - Initial EKG shows no acute ST-T wave changes - Trending troponin-- falling, no need to follow - Patient asymptomatic AUTI -Rocephin Q24 hours -UC, pending High Fall Risk -Fall precautions -PT/OT for balance/strength -Dementia, will need close monitoring Chronic: Impaired Vision HTN- stable HLD CAD DM2- A1C 6.3 today Hypothyroidism- TSH WNL at 1.3 OA/DJD Osteoporosis, DEXA Scan 01/14/17-- osteoporosis, start calcium with vit D supplement and prolia Q6 months Dementia Depression Plan: Admit to Med-Surg Routine AM Labs Resume Home Meds Fall Precautions PT/OT consult Dietary consult for Osteoporosis SW/CM for d/c planning--Possible Rehab/SNF if not NH placement; Patient is progressing well, doing well with therapies thus far. LOS likely >96 hours pending SNF placement. Additional orders as above Code status: DNR/DNI
[2017-02-27] MEDS: Non-Formulary Medication 1 Each (L Acidophil/B Lactis/B Longum [Florajen3] 460 MG) PO SCH (10:40)
[2017-02-27] MEDS: MEMANTINE HCL 7 MG PO SCH (10:43)
[2017-02-27] MEDS: Acetaminophen/HYDROcodone 325-5 MG Tab PO PRN ×2 (12:03→22:18)
[2017-02-27] MEDS: cefTRIAXone 1 GM in Sodium Chloride 0.9% 100 ML IV SCH (12:05)
[2017-02-27] MEDS: Psyllium Husk Powder Sugar Free 3.4 GM Packet PO SCH (17:52)
[2017-02-27] MEDS: Simvastatin 10 MG Tab PO SCH (22:19)
[2017-02-28] MEDS: Calcium Carbonate 600 MG Tab PO SCH ×2 (06:11→17:21)
--- NOTE | 2017-02-28 07:48 | PCM.PN ---
- General Info Date of Service: 02/28/17 Admission Dx/Problem (Free Text): Admission Diagnosis/Problem Admission Diagnosis/Problem Syncope and collapse Subjective Update: Follow Up Functional Status: Reports: Tolerating Diet, Ambulating, New Symptoms. Denies: Pain Controlled, Urinating Pain Score: 10 - Review of Systems General: Denies: Fever, Weakness, Fatigue, Malaise, Chills HEENT: Reports: No Symptoms Pulmonary: Denies: Shortness of Breath 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: Denies: Chest Pain Gastrointestinal: Denies: Abdominal Pain, Nausea, Vomiting Genitourinary: Reports: No Symptoms Musculoskeletal: Reports: Shoulder Pain Skin: Denies: Cyanosis, Jaundice, Mottled, Diaphoresis Neurological: Reports: Confusion (baseline memory impairment), Difficulty Walking, Gait Disturbance. Denies: Dizziness, Pre-Existing Deficit, Seizure, Weakness Psychiatric: Denies: Depression, Anxiety, Hallucinations Systems Review Comment:: No significant overnight or acute issues. She slept good. She has not new complaints. - Patient Data Vitals - Most Recent: Last Vital Signs Temp 36.9 C 02/28/17 03:05 Pulse 75 02/28/17 03:05 Resp 18 02/28/17 03:05 BP 146/69 H 02/28/17 03:06 Pulse Ox 94 L 02/28/17 03:05 Orthostatic Blood Pressure [ 119/62 Standing] Orthostatic Blood Pressure [ 130/59 Sitting] Orthostatic Blood Pressure [ 138/64 Supine] Weight - Most Recent: 78.789 kg I&O - Last 24 Hours: Intake & Output 02/27/17 02/28/17 02/28/17 22:59 06:59 14:59 Intake Total 1000 300 Output Total 1400 400 Balance -400 -100 Lab Results Last 24 Hours: Laboratory Results - last 24 hr 02/27/17 02/27/17 02/27/17 Range/Units 07:15 07:15 10:53 Manual Slide Review Abnormal smear POC Glucose 85 (83-110) mg/dL Hemoglobin A1c 6.30 H (4.50-6.20) % 02/27/17 02/27/17 02/28/17 Range/Units 17:38 22:26 06:09 Manual Slide Review POC Glucose 74 L 118 H 133 H (83-110) mg/dL Hemoglobin A1c (4.50-6.20) % Reid Results Last 24 Hours: Microbiology 02/26/17 04:00 Urine Culture - Preliminary Urine, Clean Catch MIXED MEENU DAY 1 Med Orders - Current: Current Medications Acetaminophen (Tylenol) 650 mg PO Q4H PRN PRN Reason: Pain (Mild 1-3)/fever Hydrocodone Bitart/Acetaminophen ([place] 325-5 Mg) 1 tab PO Q4H PRN PRN Reason: Pain (moderate 4-6) Last Admin: 02/27/17 22:18 Dose: 1 tab Albuterol/Ipratropium (Duoneb 3.0-0.5 Mg/3 Ml) 3 ml NEB Q4H PRN PRN Reason: Shortness Of Breath/wheezing Aspirin (Halfprin) 81 mg PO DAILY [facility] Last Admin: 02/27/17 08:32 Dose: 81 mg Bisacodyl (Dulcolax) 5 mg PO DAILY PRN PRN Reason: Constipation Bismuth Subsalicylate (Pepto Bismol) 1 ml PO DAILY PRN PRN Reason: Heartburn Calcium Carbonate/Glycine (Calcium Carbonate) 600 mg PO BIDMEALS [facility] Last Admin: 02/28/17 06:11 Dose: 600 mg Chlorhexidine Gluconate (Peridex 0.12% Rinse) 5 ml PO TID [facility] Last Admin: 02/27/17 22:21 Dose: 5 ml Cholecalciferol (Vitamin D3) 1,000 units PO DAILY [facility] Last Admin: 02/27/17 08:32 Dose: 1,000 units Citalopram Hydrobromide (Celexa) 40 mg PO DAILY [facility] Last Admin: 02/27/17 08:32 Dose: 40 mg Denosumab (Prolia) 60 mg SUBCUT ONETIME ONE Stop: 02/26/17 21:20 Dextrose/Water (Dextrose 50% In Water) 50 ml IVPUSH ASDIRECTED PRN PRN Reason: Hypoglycemia Docusate Sodium (Colace) 100 mg PO BID PRN PRN Reason: Constipation Hydralazine HCl (Apresoline) 10 mg IVPUSH Q4H PRN PRN Reason: Hypertension Hydromorphone HCl (Dilaudid) 0.25 mg IVPUSH Q2H PRN PRN Reason: Pain (severe 7-10) Last Admin: 02/26/17 00:20 Dose: 0.25 mg Promethazine HCl 12.5 mg/ (Sodium Chloride) 50.5 mls @ 100 mls/hr IV Q6H PRN PRN Reason: Nausea/Vomiting Ceftriaxone Sodium 1 gm/ (Sodium Chloride) 100 mls @ 200 mls/hr IV Q24H [facility] Last Admin: 02/27/17 12:05 Dose: 200 mls/hr Insulin Aspart (Novolog) 7 unit SUBCUT QPM [facility] Last Admin: 02/27/17 17:57 Dose: Not Given Insulin Aspart (Novolog) 16 unit SUBCUT QAM [facility] Last Admin: 02/27/17 08:33 Dose: 16 units Insulin Aspart (Novolog) 13 unit SUBCUT WITHLUNCH [facility] Last Admin: 02/27/17 11:15 Dose: Not Given Insulin Detemir (Levemir) 30 unit SUBCUT DAILY [facility] Last Admin: 02/27/17 08:34 Dose: 30 units Levothyroxine Sodium (Levothyroxine) 75 mcg PO DAILY [facility] Last Admin: 02/27/17 08:32 Dose: 75 mcg Loperamide HCl (Imodium) 4 mg PO ONETIME PRN PRN Reason: Diarrhea Lorazepam (Ativan) 0.25 mg IV Q6H PRN PRN Reason: Anxiety Magnesium Hydroxide (Milk Of Magnesia) 30 ml PO DAILY PRN PRN Reason: Constipation Magnesium Sulfate (Pharmacy To Dose - Magnesium Replacement) 1 dose .XX ASDIRECTED [facility] Metoprolol Tartrate (Lopressor) 5 mg IVPUSH Q4H PRN PRN Reason: Tachycardia Morphine Sulfate (Morphine) 2 mg IVPUSH Q2H PRN PRN Reason: Pain Last Admin: 02/25/17 19:03 Dose: 2 mg Multivitamins (Thera) 1 each PO DAILY [facility] Last Admin: 02/27/17 08:32 Dose: 1 each Non-Formulary Medication (Biotin [Biotin]) 10,000 mcg PO DAILY PRN PRN Reason: Dryness Non-Formulary Medication (Hydrocortisone) 1 g TOP TID PRN PRN Reason: Rash Non-Formulary Medication (L Acidophil/B Lactis/B Longum [Florajen3]) 460 mg PO DAILY [facility] Last Admin: 02/27/17 10:40 Dose: Not Given Non-Formulary Medication (Memantine Hcl) 7 mg PO DAILY [facility] Last Admin: 02/27/17 10:43 Dose: Not Given Non-Formulary Medication (Trolamine Salicylate/Aloe Vera) 1 g TOP DAILY PRN PRN Reason: Pain Ondansetron HCl (Zofran) 4 mg IV Q6H PRN PRN Reason: Nausea/Vomiting Polyethylene Glycol (Miralax) 17 gm PO DAILY PRN PRN Reason: Constipation Potassium Chloride (Pharmacy To Dose - Potassium Replacement) 1 dose .XX ASDIRECTED [facility] Psyllium Husk (Metamucil Sugar Free) 2 packet PO QPM [facility] Last Admin: 02/27/17 17:52 Dose: 2 packet Senna/Docusate Sodium (Senna Plus) 1 tab PO BID PRN PRN Reason: Constipation Simethicone (Simethicone) 125 mg PO Q4H PRN PRN Reason: Gas Simvastatin (Zocor) 10 mg PO BEDTIME [facility] Last Admin: 02/27/17 22:19 Dose: 10 mg Temazepam (Restoril) 7.5 mg PO BEDTIME PRN PRN Reason: Sleep Vit A/Vit C/Vit E/Selen/Cu/Zn/Lutei (Icaps Mv) 1 tab PO DAILY [facility] Last Admin: 02/27/17 08:32 Dose: 1 tab Discontinued Medications Ceftriaxone Sodium (Rocephin) 1,000 mg IVPUSH Q24H [facility] Docusate Sodium (Colace) 100 mg PO BID PRN PRN Reason: Constipation Fentanyl (Sublimaze) 25 mcg IVPUSH ONETIME ONE Stop: 02/25/17 16:45 Last Admin: 02/25/17 17:18 Dose: 25 mcg Sodium Chloride (Normal Saline) 1,000 mls @ 75 mls/hr IV ASDIRECTED [facility] Last Admin: 02/27/17 02:32 Dose: 75 mls/hr Insulin Aspart (Novolog) 13 unit SUBCUT DAILY [facility] Pneumococcal 13-Valent Conj Vacc (Prevnar 13) 0.5 ml IM .ONCE ONE Stop: 02/26/17 11:15 - Exam General: Alert, Cooperative, No Acute Distress HEENT: Pupils Equal, Pupils Reactive, EOMI, Mucous Membr. Moist/[place] Neck: Supple, Trachea Midline, No JVD, No Thyromegaly Lungs: Normal Respiratory Effort, Decreased Breath Sounds 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: Regular Rate, Regular Rhythm GI/Abdominal Exam: Normal Bowel Sounds, Soft, Non-Tender, No Organomegaly, No Distention, No Abnormal Bruit, No Mass (Female) Exam: Deferred Back Exam: Normal Inspection, Decreased Range of Motion Extremities: Normal Inspection, Normal Range of Motion, Non-Tender, No Pedal Edema, Normal Capillary Refill, Other (Right Arm: With sling and swathe) Peripheral Pulses: 2+: Dorsalis Pedis (L), Dorsalis Pedis (R) Skin: Warm, Dry, Intact Neurological: No New Focal Deficit. No: Normal Gait Psy/Mental Status: Alert, Normal Affect, Normal Mood - Problem List Review Problem List Initiated/Reviewed/Updated: Yes - My Orders Last 24 Hours: My Active Orders 02/27/17 09:00 Calcium Carbonate 600 mg PO BIDMEALS Cholecalciferol (Vitamin D3) [Vitamin D3] 1,000 units PO DAILY - Plan Plan:: Assessment/Plan; Acute: Recurrent Fall - Unclear in etiology but highly suspect due to mechanical fall-- newly dx AUTI - Risk Factors: Impaired Vision, DM, HTN, Osteoporosis, Dementia and OA/DJD - No documented hypoglycemia or hypotension - She is not on narcotics - Continue PT/OT to eval - Fall Precautions - Vit D and Thyroid Panel - Low vit D level of 24; start supplement -TSH WNL of 1.3 Right Humerus Fracture, Unchanged - X-Ray: Surgical Neck Fx Within Right Proximal Humerus - S/p Fall - Conservative Management - Continue PT/OT - Sling and Swathe - Pain Management - Follow up Ortho Outpatient since we do not have inpatient services available Right Pelvic Fracture - Discussed with Ortho via phone, see Dr. Currie note from yesterday - Recommendations for WBAT with FWW - PT/OT - Pain management - Follow up with Ortho as outpatient, Dr. Cooney in 2 weeks AUTI - Rocephin Q24 hours - UC, Mixed meenu - Will d/c Rocephin after dose today High Fall Risk -Fall precautions -PT/OT for balance/strength -Dementia, will need close monitoring Resolved: Scalp Contusion - S/p Fall - Head CT scan: no acute intra-cranial abnormality - No neurologic complaints; negative neuro checks - Monitor Elevated Troponin Level - Likely from troponin leak - Initial Troponin is 0.085--improved to 0.06 - Initial EKG shows no acute ST-T wave changes - Trending troponin-- falling, no need to follow - Patient asymptomatic Chronic: Impaired Vision HTN- stable HLD CAD DM2- A1C 6.3 today Hypothyroidism- TSH WNL at 1.3 OA/DJD Osteoporosis, DEXA Scan 01/14/17-- osteoporosis, start calcium with vit D supplement and prolia Q6 months Dementia Depression Plan: She is clinically stable Routine AM Labs Fall Precautions Continue PT/OT Dietary consult for Osteoporosis SW/CM for d/c planning--Possible Rehab/SNF if not NH placement; Patient is progressing well, doing well with therapies thus far. LOS likely >96 hours pending SNF placement Additional orders as above Code status: DNR/DNI
[2017-02-28] MEDS: Insulin Aspart 100 Units/ML 3 ML Pen SUBCUT SCH ×3 (09:20→17:22)
[2017-02-28] MEDS: Citalopram 20 MG Tab PO SCH (09:24)
[2017-02-28] MEDS: Aspirin 81 MG Tab.EC PO SCH (09:25)
[2017-02-28] MEDS: Multivitamins with Minerals/Folic Acid/Lutein/Zeaxanth Tab PO SCH (09:25)
[2017-02-28] MEDS: Non-Formulary Medication 1 Each (L Acidophil/B Lactis/B Longum [Florajen3] 460 MG) PO SCH (09:27)
[2017-02-28] MEDS: Insulin Detemir 100 Units/ML 3 ML Pen SUBCUT SCH (09:27)
[2017-02-28] MEDS: MEMANTINE HCL 7 MG PO SCH (09:30)
[2017-02-28] MEDS: Levothyroxine 75 MCG Tab PO SCH (09:30)
[2017-02-28] MEDS: Multivitamins,Therapeutic Tab PO SCH (09:30)
[2017-02-28] MEDS: Cholecalciferol (Vitamin D3) 1,000 Unit Tab PO SCH (09:31)
[2017-02-28] MEDS: Chlorhexidine Gluconate 0.12% Oral Rinse 15 ML Cup PO SCH ×3 (09:31→22:39)
[2017-02-28] MEDS: Acetaminophen/HYDROcodone 325-5 MG Tab PO PRN ×2 (09:33→17:21)
[2017-02-28] MEDS: cefTRIAXone 1 GM in Sodium Chloride 0.9% 100 ML IV SCH (14:01)
[2017-02-28] MEDS: Psyllium Husk Powder Sugar Free 3.4 GM Packet PO SCH (17:22)
[2017-02-28] MEDS: Simvastatin 10 MG Tab PO SCH (22:39)
[2017-03-01] MEDS: Calcium Carbonate 600 MG Tab PO SCH ×2 (06:21→18:21)
--- NOTE | 2017-03-01 07:33 | PCM.PN ---
- General Info Date of Service: 03/01/17 Admission Dx/Problem (Free Text): Admission Diagnosis/Problem Admission Diagnosis/Problem Syncope and collapse Subjective Update: Follow Up Functional Status: Reports: Pain Controlled, Tolerating Diet, Urinating. Denies : New Symptoms - Review of Systems General: Denies: Fever, Weakness, Fatigue, Malaise, Chills HEENT: Reports: No Symptoms Pulmonary: Denies: Shortness of Breath 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: Denies: Chest Pain, Palpitations Gastrointestinal: Denies: Abdominal Pain, Nausea, Vomiting Genitourinary: Reports: No Symptoms Musculoskeletal: Reports: No Symptoms, Arm Pain Skin: Denies: Cyanosis, Pallor, Diaphoresis, Rash Neurological: Reports: Difficulty Walking, Gait Disturbance. Denies: Confusion , Weakness Psychiatric: Denies: Confusion, Depression, Mood Lability, Anxiety, Agitation, Cravings, Hallucinations, Homicidal Ideation Systems Review Comment:: No overnight or acute issues. She slept pretty good. She complaints of arm pain this am with a pain scale of 6/10. She has no other complaints. - Patient Data Vitals - Most Recent: Last Vital Signs Temp 36.7 C 03/01/17 03:57 Pulse 81 03/01/17 03:57 Resp 18 03/01/17 03:57 BP 147/67 H 03/01/17 04:27 Pulse Ox 93 L 03/01/17 03:57 Orthostatic Blood Pressure [ 129/102 Standing] Orthostatic Blood Pressure [ 135/91 Sitting] Orthostatic Blood Pressure [ 149/59 Supine] Weight - Most Recent: 78.789 kg I&O - Last 24 Hours: Intake & Output 02/28/17 03/01/17 03/01/17 22:59 06:59 14:59 Intake Total 700 200 Output Total 750 375 Balance -50 -175 Lab Results Last 24 Hours: Laboratory Results - last 24 hr 02/28/17 02/28/17 02/28/17 Range/Units 10:50 11:10 17:13 Sodium 137 (136-145) mEq/L Potassium 3.9 (3.5-5.1) mEq/L Chloride 104 (98-107) mEq/L Carbon Dioxide 25 (21-32) mEq/L Anion Gap 11.9 (5-15) BUN 10 (7-18) mg/dL Creatinine 1.3 H (0.55-1.02) mg/dL Est Cr Clr Drug Dosing 29.08 mL/min Estimated GFR (MDRD) 39 (>60) mL/min BUN/Creatinine Ratio 7.7 L (14-18) Glucose 224 H (83-115) mg/dL POC Glucose 205 H 61 L (83-110) mg/dL Calcium 8.7 (8.5-10.1) mg/dL Magnesium 2.0 (1.8-2.4) mg/dl Total Bilirubin 0.5 (0.2-1.0) mg/dL AST 16 (15-37) U/L ALT 15 (14-59) U/L Alkaline Phosphatase 64 (46-116) U/L Total Protein 6.2 L (6.4-8.2) g/dl Albumin 2.6 L (3.4-5.0) g/dl Globulin 3.6 gm/dL Albumin/Globulin Ratio 0.7 L (1-2) 02/28/17 02/28/17 03/01/17 Range/Units 18:22 22:01 06:23 Sodium (136-145) mEq/L Potassium (3.5-5.1) mEq/L Chloride (98-107) mEq/L Carbon Dioxide (21-32) mEq/L Anion Gap (5-15) BUN (7-18) mg/dL Creatinine (0.55-1.02) mg/dL Est Cr Clr Drug Dosing mL/min Estimated GFR (MDRD) (>60) mL/min BUN/Creatinine Ratio (14-18) Glucose (83-115) mg/dL POC Glucose 106 167 H 170 H (83-110) mg/dL Calcium (8.5-10.1) mg/dL Magnesium (1.8-2.4) mg/dl Total Bilirubin (0.2-1.0) mg/dL AST (15-37) U/L ALT (14-59) U/L Alkaline Phosphatase (46-116) U/L Total Protein (6.4-8.2) g/dl Albumin (3.4-5.0) g/dl Globulin gm/dL Albumin/Globulin Ratio (1-2) Reid Results Last 24 Hours: Microbiology 02/26/17 04:00 Urine Culture - Final Urine, Clean Catch MIXED MEENU DAY 2 Med Orders - Current: Current Medications Acetaminophen (Tylenol) 650 mg PO Q4H PRN PRN Reason: Pain (Mild 1-3)/fever Hydrocodone Bitart/Acetaminophen ([place] 325-5 Mg) 1 tab PO Q4H PRN PRN Reason: Pain (moderate 4-6) Last Admin: 02/28/17 17:21 Dose: 1 tab Albuterol/Ipratropium (Duoneb 3.0-0.5 Mg/3 Ml) 3 ml NEB Q4H PRN PRN Reason: Shortness Of Breath/wheezing Aspirin (Halfprin) 81 mg PO DAILY [facility] Last Admin: 02/28/17 09:25 Dose: 81 mg Bisacodyl (Dulcolax) 5 mg PO DAILY PRN PRN Reason: Constipation Bismuth Subsalicylate (Pepto Bismol) 1 ml PO DAILY PRN PRN Reason: Heartburn Calcium Carbonate/Glycine (Calcium Carbonate) 600 mg PO BIDMEALS [facility] Last Admin: 03/01/17 06:21 Dose: 600 mg Chlorhexidine Gluconate (Peridex 0.12% Rinse) 5 ml PO TID [facility] Last Admin: 02/28/17 22:39 Dose: 5 ml Cholecalciferol (Vitamin D3) 1,000 units PO DAILY [facility] Last Admin: 02/28/17 09:31 Dose: 1,000 units Citalopram Hydrobromide (Celexa) 40 mg PO DAILY [facility] Last Admin: 02/28/17 09:24 Dose: 40 mg Denosumab (Prolia) 60 mg SUBCUT ONETIME ONE Stop: 02/26/17 21:20 Dextrose/Water (Dextrose 50% In Water) 50 ml IVPUSH ASDIRECTED PRN PRN Reason: Hypoglycemia Docusate Sodium (Colace) 100 mg PO BID PRN PRN Reason: Constipation Hydralazine HCl (Apresoline) 10 mg IVPUSH Q4H PRN PRN Reason: Hypertension Hydromorphone HCl (Dilaudid) 0.25 mg IVPUSH Q2H PRN PRN Reason: Pain (severe 7-10) Last Admin: 02/26/17 00:20 Dose: 0.25 mg Promethazine HCl 12.5 mg/ (Sodium Chloride) 50.5 mls @ 100 mls/hr IV Q6H PRN PRN Reason: Nausea/Vomiting Ceftriaxone Sodium 1 gm/ (Sodium Chloride) 100 mls @ 200 mls/hr IV Q24H [facility] Last Admin: 02/28/17 14:01 Dose: 200 mls/hr Insulin Aspart (Novolog) 7 unit SUBCUT QPM [facility] Last Admin: 02/28/17 17:22 Dose: Not Given Insulin Aspart (Novolog) 16 unit SUBCUT QAM [facility] Last Admin: 02/28/17 09:20 Dose: 16 units Insulin Aspart (Novolog) 13 unit SUBCUT WITHLUNCH [facility] Last Admin: 02/28/17 11:04 Dose: 13 units Insulin Detemir (Levemir) 30 unit SUBCUT DAILY [facility] Last Admin: 02/28/17 09:27 Dose: 30 units Levothyroxine Sodium (Levothyroxine) 75 mcg PO DAILY [facility] Last Admin: 02/28/17 09:30 Dose: 75 mcg Loperamide HCl (Imodium) 4 mg PO ONETIME PRN PRN Reason: Diarrhea Lorazepam (Ativan) 0.25 mg IV Q6H PRN PRN Reason: Anxiety Magnesium Hydroxide (Milk Of Magnesia) 30 ml PO DAILY PRN PRN Reason: Constipation Magnesium Sulfate (Pharmacy To Dose - Magnesium Replacement) 1 dose .XX ASDIRECTED [facility] Metoprolol Tartrate (Lopressor) 5 mg IVPUSH Q4H PRN PRN Reason: Tachycardia Morphine Sulfate (Morphine) 2 mg IVPUSH Q2H PRN PRN Reason: Pain Last Admin: 02/25/17 19:03 Dose: 2 mg Multivitamins (Thera) 1 each PO DAILY [facility] Last Admin: 02/28/17 09:30 Dose: 1 each Non-Formulary Medication (Biotin [Biotin]) 10,000 mcg PO DAILY PRN PRN Reason: Dryness Non-Formulary Medication (Hydrocortisone) 1 g TOP TID PRN PRN Reason: Rash Non-Formulary Medication (L Acidophil/B Lactis/B Longum [Florajen3]) 460 mg PO DAILY [facility] Last Admin: 02/28/17 09:27 Dose: Not Given Non-Formulary Medication (Memantine Hcl) 7 mg PO DAILY [facility] Last Admin: 02/28/17 09:30 Dose: Not Given Non-Formulary Medication (Trolamine Salicylate/Aloe Vera) 1 g TOP DAILY PRN PRN Reason: Pain Ondansetron HCl (Zofran) 4 mg IV Q6H PRN PRN Reason: Nausea/Vomiting Polyethylene Glycol (Miralax) 17 gm PO DAILY PRN PRN Reason: Constipation Potassium Chloride (Pharmacy To Dose - Potassium Replacement) 1 dose .XX ASDIRECTED [facility] Psyllium Husk (Metamucil Sugar Free) 2 packet PO QPM [facility] Last Admin: 02/28/17 17:22 Dose: 2 packet Senna/Docusate Sodium (Senna Plus) 1 tab PO BID PRN PRN Reason: Constipation Simethicone (Simethicone) 125 mg PO Q4H PRN PRN Reason: Gas Simvastatin (Zocor) 10 mg PO BEDTIME [facility] Last Admin: 02/28/17 22:39 Dose: 10 mg Temazepam (Restoril) 7.5 mg PO BEDTIME PRN PRN Reason: Sleep Vit A/Vit C/Vit E/Selen/Cu/Zn/Lutei (Icaps Mv) 1 tab PO DAILY [facility] Last Admin: 02/28/17 09:25 Dose: 1 tab Discontinued Medications Ceftriaxone Sodium (Rocephin) 1,000 mg IVPUSH Q24H [facility] Docusate Sodium (Colace) 100 mg PO BID PRN PRN Reason: Constipation Fentanyl (Sublimaze) 25 mcg IVPUSH ONETIME ONE Stop: 02/25/17 16:45 Last Admin: 02/25/17 17:18 Dose: 25 mcg Sodium Chloride (Normal Saline) 1,000 mls @ 75 mls/hr IV ASDIRECTED [facility] Last Admin: 02/27/17 02:32 Dose: 75 mls/hr Insulin Aspart (Novolog) 13 unit SUBCUT DAILY [facility] Pneumococcal 13-Valent Conj Vacc (Prevnar 13) 0.5 ml IM .ONCE ONE Stop: 02/26/17 11:15 - Exam General: Alert, Cooperative, No Acute Distress HEENT: Pupils Equal, Pupils Reactive, EOMI, Mucous Membr. Moist/[place] Neck: Supple, Trachea Midline, No JVD, No Thyromegaly Lungs: Clear to Auscultation, Normal Respiratory Effort 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: Regular Rate, Regular Rhythm GI/Abdominal Exam: Normal Bowel Sounds, Soft, Non-Tender, No Organomegaly, No Distention, No Abnormal Bruit, No Mass (Female) Exam: Deferred Back Exam: Normal Inspection, Decreased Range of Motion Extremities: Normal Inspection (left arm), Normal Range of Motion (left arm), Non-Tender (left arm), No Pedal Edema, Normal Capillary Refill, Other (right arm : with sling and swathe) Skin: Warm, Dry, Intact Neurological: No New Focal Deficit. No: Normal Gait Psy/Mental Status: Alert, Normal Affect, Normal Mood - Problem List Review Problem List Initiated/Reviewed/Updated: Yes - My Orders Last 24 Hours: My Active Orders 03/02/17 05:11 BMP [BASIC METABOLIC PANEL,BMP] [CHEM] AM MG [MAGNESIUM] [CHEM] AM 03/03/17 05:11 BMP [BASIC METABOLIC PANEL,BMP] [CHEM] AM MG [MAGNESIUM] [CHEM] AM 03/04/17 05:11 BMP [BASIC METABOLIC PANEL,BMP] [CHEM] AM MG [MAGNESIUM] [CHEM] AM - Plan Plan:: Assessment/Plan; Acute: S/p Recurrent Fall - Unclear in etiology but highly suspect due to mechanical fall-- newly dx AUTI - Risk Factors: Impaired Vision, DM, HTN, Osteoporosis, Dementia and OA/DJD - No documented hypoglycemia or hypotension - She is not on narcotics - Continue PT/OT to eval - Fall Precautions - Vit D and Thyroid Panel - Low vit D level of 24 now on supplement -TSH WNL of 1.3 Right Humerus Fracture, Unchanged - X-Ray: Surgical Neck Fx Within Right Proximal Humerus - S/p Fall - Conservative Management - Continue PT/OT - Sling and Swathe - Pain Management - Follow up Ortho Outpatient since we do not have inpatient services available Right Pelvic Fracture, Stable - Discussed with Ortho via phone, see Dr. Currie note from yesterday - Recommendations for WBAT with FWW - PT/OT - Pain management - Follow up with Ortho as outpatient, Dr. Cooney in 2 weeks High Fall Risk -Fall precautions -PT/OT for balance/strength -Dementia, will need close monitoring Resolved: Scalp Contusion - S/p Fall - Head CT scan: no acute intra-cranial abnormality - No neurologic complaints; negative neuro checks - Monitor Elevated Troponin Level - Likely from troponin leak - Initial Troponin is 0.085--improved to 0.06 - Initial EKG shows no acute ST-T wave changes - Trending troponin-- falling, no need to follow - Patient asymptomatic Asymptomatic Bacteruria/ AUTI - Received Rocephin Q24 hours at least 3 doses - UC, Mixed meenu Chronic: Impaired Vision HTN- stable HLD CAD DM2- A1C 6.3, stable BS Hypothyroidism- TSH WNL at 1.3 OA/DJD Osteoporosis, DEXA Scan 01/14/17-- osteoporosis, on calcium with vit D supplement and prolia Q6 months Dementia Depression Plan: She remains clinically stable Patient continues to progress well, doing well with therapies BMP and Mg in AM Fall Precautions Continue PT/OT Dietary consult for Osteoporosis SW/CM for d/c planning Additional orders as above Code status: DNR/DNI LOS > 96 hours pending SNF/NH placement
[2017-03-01] MEDS: Chlorhexidine Gluconate 0.12% Oral Rinse 15 ML Cup PO SCH ×3 (09:00→20:13)
[2017-03-01] MEDS: Levothyroxine 75 MCG Tab PO SCH (09:07)
[2017-03-01] MEDS: Furosemide 20 MG Tab PO SCH (09:07)
[2017-03-01] MEDS: Citalopram 20 MG Tab PO SCH (09:07)
[2017-03-01] MEDS: Multivitamins with Minerals/Folic Acid/Lutein/Zeaxanth Tab PO SCH (09:07)
[2017-03-01] MEDS: Multivitamins,Therapeutic Tab PO SCH (09:08)
[2017-03-01] MEDS: Aspirin 81 MG Tab.EC PO SCH (09:08)
[2017-03-01] MEDS: Cholecalciferol (Vitamin D3) 1,000 Unit Tab PO SCH (09:08)
[2017-03-01] MEDS: Hydrochlorothiazide 12.5 MG Cap PO SCH ×2 (09:08→13:56)
[2017-03-01] MEDS: Insulin Detemir 100 Units/ML 3 ML Pen SUBCUT SCH (09:11)
[2017-03-01] MEDS: MEMANTINE HCL 7 MG PO SCH (09:13)
[2017-03-01] MEDS: Insulin Aspart 100 Units/ML 3 ML Pen SUBCUT SCH ×3 (11:20→18:15)
[2017-03-01] MEDS: Acetaminophen/HYDROcodone 325-5 MG Tab PO PRN (11:27)
[2017-03-01] MEDS: Non-Formulary Medication 1 Each (L Acidophil/B Lactis/B Longum [Florajen3] 460 MG) PO SCH (11:30)
[2017-03-01] MEDS: Psyllium Husk Powder Sugar Free 3.4 GM Packet PO SCH (18:21)
[2017-03-01] MEDS: Simvastatin 10 MG Tab PO SCH (20:13)
[2017-03-02] MEDS: Acetaminophen/HYDROcodone 325-5 MG Tab PO PRN ×2 (05:46→11:50)
[2017-03-02] MEDS: Hydrochlorothiazide 12.5 MG Cap PO SCH (05:46)
[2017-03-02] MEDS: Calcium Carbonate 600 MG Tab PO SCH ×2 (05:46→06:37)
[2017-03-02] MEDS: Insulin Detemir 100 Units/ML 3 ML Pen SUBCUT SCH (08:49)
[2017-03-02] MEDS: Insulin Aspart 100 Units/ML 3 ML Pen SUBCUT SCH ×2 (08:50→11:31)
[2017-03-02] MEDS: Citalopram 20 MG Tab PO SCH (08:51)
[2017-03-02] MEDS: Furosemide 20 MG Tab PO SCH (08:51)
[2017-03-02] MEDS: Non-Formulary Medication 1 Each (L Acidophil/B Lactis/B Longum [Florajen3] 460 MG) PO SCH (08:51)
[2017-03-02] MEDS: Chlorhexidine Gluconate 0.12% Oral Rinse 15 ML Cup PO SCH (08:51)
[2017-03-02] MEDS: Cholecalciferol (Vitamin D3) 1,000 Unit Tab PO SCH (08:51)
[2017-03-02] MEDS: Multivitamins,Therapeutic Tab PO SCH (08:51)
[2017-03-02] MEDS: Multivitamins with Minerals/Folic Acid/Lutein/Zeaxanth Tab PO SCH (08:51)
[2017-03-02] MEDS: Aspirin 81 MG Tab.EC PO SCH (08:51)
[2017-03-02] MEDS: Levothyroxine 75 MCG Tab PO SCH (08:51)
[2017-03-02] MEDS: MEMANTINE HCL 7 MG PO SCH (08:55)
[2017-03-02 09:10] VITALS: BP 134/58
--- NOTE | 2017-03-02 09:38 | PCM.DCSUM1 ---
Discharge Summary - Hospital Course Free Text/Narrative:: This is an 87 yo elderly female with past medical hx/o impaired vision, hypertension, coronary artery disease, osteoarthritis/DJD, osteoporosis, IDDM, hypothyroidism, depression, and memory impairment/dementia who presents to the emergency department for evaluation after recurrent falls, at least 2 today, and was found to have right humerus fracture. Patient was brought to ED initially, early this morning secondary to what appears to be mechanical fall. She was in the bathroom when she slipped and struck the back of her head against the toilet. Patient reports no prodromal symptoms. No reports of loss of consciousness. She did have some nausea and small emesis at that time. She admits to some mild dizziness but this appears to be chronic to her. Her initial workup this morning was benign, she was discharged back home. Patient came back this afternoon after she fell somewhere in the kitchen for the second time. Patient normally uses a walker to ambulate but at that time, she was not using it. Again, there were no reports of prodromal symptoms. No loss of consciousness. She does not recall feeling lightheaded or dizzy or any symptoms prior to the fall. She denies any headaches or any neurologic deficits. Currently, she reports right shoulder pain that is moderate to severe in nature and worse with movement. She denies any associated numbness weakness or tingling. She denies any neck, back, or flank pain. She admits however to some mild right hip pain but has since resolved. She denies any systemic symptoms. She further denies any other lower extremity pain. Follow-up workup lab in the emergency department shows a CBC remarkable for WBC of 12.32, RBC of 3.81, neutrophils of 78.8%, lymphocytes of 10.5%. Her chemistry is remarkable for creatinine of 1.5, glucose of 152, and troponin of 0.085. Head CT scan report reads no acute intra-cranial abnormality. Chest x- ray shows no acute abnormality. Elbow and shoulder x-ray both shows noted acute abnormality. Right humerus x-ray shows proximal humerus fracture/humeral neck fracture with impaction. Hospitalist service is consulted for admission for medical management of proximal humerus fracture and status post fall. She is DNR /DNI. Patient continued to have complaints of hip pain which worsened with ambulation. Xray of pelvis was obtained showing displaced right superior and inferior pubic rami fractures. Dr. Currie did speak to Orthopedics on-call in [place] regarding this fracture, determined to be nonsurgical with recommendations for WBAT with walker. PT/OT continued to work with patient. Pain was managed with tylenol and Hamilton. She continued to do well. She will be discharged to [facility] ([facility]) today for rehab stay with hopes to return to [facility]. She is to follow up with Dr. Cooney, Orthopedics in 2 weeks for recheck of fractures and with PCP, Ivonne Chavarria PA-C within one week of discharge from [facility] for recheck. - Discharge Data Discharge Date: 03/02/17 (admit date 02/25/17) Discharge Disposition: DC/Tfer to SNF 03 Condition: Good - Discharge Diagnosis/Problem(s) (1) Fall SNOMED Code(s): 8984630, 607961737 ICD Code: W19.XXXA - UNSPECIFIED FALL, INITIAL ENCOUNTER Status: Acute Priority: High Current Visit: Yes Qualifiers: Encounter type: initial encounter Qualified Code(s): W19.XXXA - Unspecified fall, initial encounter (2) Pelvic fracture SNOMED Code(s): 50183641 ICD Code: S32.9XXA - FRACTURE OF UNSP PARTS OF LUMBOSACRAL SPINE AND PELVIS, INIT Status: Acute Priority: High Current Visit: Yes Qualifiers: Encounter type: initial encounter Pelvic bone location: multiple parts Fracture type: closed Fracture alignment: with stable disruption of pelvic ring Qualified Code(s): S32.810A - Multiple fractures of pelvis with stable disruption of pelvic ring, initial encounter for closed fracture (3) Fracture, humerus, anatomical neck SNOMED Code(s): 385090902 ICD Code: S42.293A - OTH DISP FX OF UPPER END OF UNSP HUMERUS, INIT FOR CLOS FX Status: Acute Priority: High Current Visit: Yes Qualifiers: Encounter type: initial encounter Fracture type: closed Laterality: right Qualified Code(s): S42.291A - Other displaced fracture of upper end of right humerus, initial encounter for closed fracture (4) Renal insufficiency SNOMED Code(s): 991656219 ICD Code: N28.9 - DISORDER OF KIDNEY AND URETER, UNSPECIFIED Status: Chronic Priority: Medium Current Visit: Yes (5) UTI (urinary tract infection) SNOMED Code(s): 21008149 ICD Code: N39.0 - URINARY TRACT INFECTION, SITE NOT SPECIFIED Status: Resolved Priority: Medium Current Visit: Yes Qualifiers: Urinary tract infection type: acute cystitis Hematuria presence: without hematuria Qualified Code(s): N30.00 - Acute cystitis without hematuria (6) Acute coronary syndrome SNOMED Code(s): 188150443 ICD Code: I24.9 - ACUTE ISCHEMIC HEART DISEASE, UNSPECIFIED Status: Resolved Priority: High Current Visit: Yes - Patient Summary/Data Operative Procedure(s) Performed: None Complications: None Consults: Consultations 02/25/17 20:10 Consult to Case Management [CONS] Routine Consult to Water Resource Manager [CONS] Routine Consult to Spiritual Care [CONS] Routine OT Evaluation and Treatment [CONS] Routine PT Evaluation and Treatment [CONS] Routine 02/25/17 21:01 Consult to Dietary [Consult to Reconciliation Clerk] [CONS] Routine 02/26/17 15:05 Consult to Reconciliation Clerk [CONS] Routine Labs Pending at D/C: None Recommended Follow-up Testing/Procedures: Patient DC instructions: Physical & Occupational Therapy to eval & treat Sling to right upper extremity when up and around for comfort Use right nathalie-walker PRN for ambulation Follow up with Dr. Cooney in 2 weeks for recheck of humerus fracture and pelvic fractures Follow up with PCP, Ivonne Chavarria PA-C within one week of discharge. Planned Operative Procedure(s) after DC: None Hospital Course: As above - Patient Instructions Diet: Heart Healthy Diet, Diabetic Diet Activity: As Tolerated Driving: Do Not Drive Showering/Bathing: May Shower Notify Provider of: Fever, Increased Pain, Swelling and Redness, Nausea and/or Vomiting - Discharge Plan Prescriptions/Med Rec: Acetaminophen/HYDROcodone [Hamilton 325-5 MG] 1 tab PO Q4H PRN #40 tablet PRN Reason: Pain Cholecalciferol (Vitamin D3) [Vitamin D3] 1,000 units PO DAILY #30 tablet Furosemide [Lasix] 20 mg PO DAILY #30 tablet Hydrochlorothiazide 12.5 mg PO BIDDIURETIC #60 cap Home Medications: Home Meds Acetaminophen [Acetaminophen 8 Hour] 650 mg PO Q8H PRN 02/25/17 [History] Amoxicillin 2,000 mg PO ONETIME PRN 02/25/17 [History] Aspirin [Ecotrin] 81 mg PO DAILY 02/25/17 [History] Biotin 10,000 mcg PO DAILY PRN 02/25/17 [History] Bisacodyl [Dulcolax] 10 mg RECTAL DAILY PRN 02/25/17 [History] Bismuth Subsalicylate [Pepto Bismol] 1 ml PO DAILY PRN 02/25/17 [History] Chlorhexidine Gluconate [Peridex 0.12% Rinse] 1 tsp PO TID 02/25/17 [History] Docusate Sodium [Colace] 100 mg PO BID PRN 02/25/17 [History] Escitalopram [Lexapro] 20 mg PO DAILY 02/25/17 [History] Hydrocortisone [Hydrocortisone 2.5% Crm] 1 g TOP TID PRN 02/25/17 [History] Insulin Aspart [NovoLOG] 7 unit SQ QPM 02/25/17 [History] Insulin Aspart [NovoLOG] 13 units SQ DAILY 02/25/17 [History] Insulin Aspart [NovoLOG] 16 unit SQ QAM 02/25/17 [History] Insulin Glargine,Hum.Rec.Anlog [Lantus Solostar] 30 units SQ DAILY 02/25/17 [ History] L Acidophil/B Lactis/B Longum [Florajen3] 460 mg PO DAILY 02/25/17 [History] Levothyroxine 75 mcg PO DAILY 02/25/17 [History] Loperamide [Imodium AD] 4 mg PO ONETIME PRN 02/25/17 [History] Lutein/Minerals/Vit A,C & E [Ocuvite] 1 tab PO DAILY 02/25/17 [History] Magnesium Hydroxide [Milk of Magnesia] 30 ml PO DAILY PRN 02/25/17 [History] Memantine HCl [Namenda XR] 7 mg PO DAILY 02/25/17 [History] Multivitamin [Multivitamins] 1 tab PO DAILY 02/25/17 [History] Psyllium Husk [Metamucil] 2 cap PO QPM 02/25/17 [History] Simethicone [Gas-X] 125 mg PO Q4H PRN 02/25/17 [History] Trolamine Salicylate/Aloe Vera [Aspercreme 10%] 1 g TOP DAILY PRN 02/25/17 [ History] atorvaSTATin [Lipitor] 10 mg PO QPM 02/25/17 [History] Acetaminophen/HYDROcodone [Hamilton 325-5 MG] 1 tab PO Q4H PRN #40 tablet 03/02/17 [Rx] Cholecalciferol (Vitamin D3) [Vitamin D3] 1,000 units PO DAILY #30 tablet [Rx] Furosemide [Lasix] 20 mg PO DAILY #30 tablet 03/02/17 [Rx] Hydrochlorothiazide 12.5 mg PO BIDDIURETIC #60 cap 03/02/17 [Rx] Patient Handouts: Insulin Treatment for Diabetes, Diabetes and Foot Care, Humerus Fracture Treated With Immobilization, Urinary Tract Infection, Adult, [id number], Type 1 Diabetes Mellitus, Adult, How to Use a Sling, Simple Pelvic Fracture, Adult Forms: ED Department Discharge Referrals: Villa Cooney MD [Physician] - Janelle Chavarria PA-C [Primary Care Provider] - - Discharge Summary/Plan Comment DC Time >30 min.: Yes (40 min) - General Info Date of Service: 03/02/17 Admission Dx/Problem (Free Text: Admission Diagnosis/Problem Admission Diagnosis/Problem Right humerous fracture, pelvic fracture Mallroie is seen this morning resting comfortably in bed. Pain is controlled to right arm and pelvis, pain to pelvis is increased when ambulating. Tolerating meals, BM in the night. No n/v/d. No other concerns/complaints today. Plan for DC to [facility] today for rehab stay. Functional Status: Reports: Pain Controlled, Tolerating Diet, Ambulating, Urinating, Incentive Spirometry. Denies: New Symptoms - Review of Systems General: Reports: No Symptoms HEENT: Reports: No Symptoms Pulmonary: Reports: No Symptoms. Denies: Shortness of Breath, Cough 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: Reports: No Symptoms. Denies: Chest Pain, Dyspnea on Exertion Gastrointestinal: Reports: No Symptoms. Denies: Abdominal Pain, Diarrhea, Nausea, Vomiting Genitourinary: Reports: No Symptoms. Denies: Dysuria, Frequency Musculoskeletal: Reports: Neck Pain, Shoulder Pain, Arm Pain, Leg Pain - Patient Data Vitals - Most Recent: Last Vital Signs Temp 97.5 F 03/02/17 08:31 Pulse 76 03/02/17 08:52 Resp 16 03/02/17 08:31 BP 134/58 L 03/02/17 08:52 Pulse Ox 91 L 03/02/17 08:52 Orthostatic Blood Pressure [ 129/102 Standing] Orthostatic Blood Pressure [ 135/91 Sitting] Orthostatic Blood Pressure [ 149/59 Supine] Weight - Most Recent: 172 lb 1 oz I&O - Last 24 hours: Intake & Output 03/01/17 03/02/17 03/02/17 22:59 06:59 14:59 Intake Total 360 250 Output Total 500 875 Balance -140 -625 Lab Results - Last 24 hrs: Laboratory Results - last 24 hr 03/01/17 03/01/17 03/01/17 Range/Units 11:54 17:50 20:19 WBC (3.98-10.04) K/mm3 RBC (3.98-5.22) M/mm3 Hgb (11.2-15.7) gm/L Hct (34.1-44.9) % MCV (79.4-94.8) fl MCH (25.6-32.2) pg MCHC (32.2-35.5) g/dl RDW Std Deviation (36.4-46.3) fL Plt Count (182-369) K/mm3 MPV (9.4-12.3) fl Neut % (Auto) (34.0-71.1) % Lymph % (Auto) (19.3-51.7) % [place] % (Auto) (4.7-12.5) % Eos % (Auto) (0.7-5.8) Baso % (Auto) (0.1-1.2) % Neut # (Auto) (1.56-6.13) K/mm3 Lymph # (Auto) (1.18-3.74) K/mm3 [place] # (Auto) (0.24-0.36) K/mm3 Eos # (Auto) (0.04-0.36) K/mm3 Baso # (Auto) (0.01-0.08) K/mm3 Sodium (136-145) mEq/L Potassium (3.5-5.1) mEq/L Chloride (98-107) mEq/L Carbon Dioxide (21-32) mEq/L Anion Gap (5-15) BUN (7-18) mg/dL Creatinine (0.55-1.02) mg/dL Est Cr Clr Drug Dosing mL/min Estimated GFR (MDRD) (>60) mL/min BUN/Creatinine Ratio (14-18) Glucose (83-115) mg/dL POC Glucose 224 H 80 L 78 L (83-110) mg/dL Calcium (8.5-10.1) mg/dL Magnesium (1.8-2.4) mg/dl 03/02/17 03/02/17 03/02/17 Range/Units 00:04 05:49 06:00 WBC (3.98-10.04) K/mm3 RBC (3.98-5.22) M/mm3 Hgb (11.2-15.7) gm/L Hct (34.1-44.9) % MCV (79.4-94.8) fl MCH (25.6-32.2) pg MCHC (32.2-35.5) g/dl RDW Std Deviation (36.4-46.3) fL Plt Count (182-369) K/mm3 MPV (9.4-12.3) fl Neut % (Auto) (34.0-71.1) % Lymph % (Auto) (19.3-51.7) % [place] % (Auto) (4.7-12.5) % Eos % (Auto) (0.7-5.8) Baso % (Auto) (0.1-1.2) % Neut # (Auto) (1.56-6.13) K/mm3 Lymph # (Auto) (1.18-3.74) K/mm3 [place] # (Auto) (0.24-0.36) K/mm3 Eos # (Auto) (0.04-0.36) K/mm3 Baso # (Auto) (0.01-0.08) K/mm3 Sodium 138 (136-145) mEq/L Potassium 3.9 (3.5-5.1) mEq/L Chloride 102 (98-107) mEq/L Carbon Dioxide 24 (21-32) mEq/L Anion Gap 15.9 H (5-15) BUN 17 (7-18) mg/dL Creatinine 1.2 H (0.55-1.02) mg/dL Est Cr Clr Drug Dosing 31.50 mL/min Estimated GFR (MDRD) 43 (>60) mL/min BUN/Creatinine Ratio 14.2 (14-18) Glucose 158 H (83-115) mg/dL POC Glucose 169 H 153 H (83-110) mg/dL Calcium 8.8 (8.5-10.1) mg/dL Magnesium 2.2 (1.8-2.4) mg/dl 03/02/17 Range/Units 06:00 WBC 11.31 H (3.98-10.04) K/mm3 RBC 3.33 L (3.98-5.22) M/mm3 Hgb 10.3 L (11.2-15.7) gm/L Hct 31.3 L (34.1-44.9) % MCV 94.0 (79.4-94.8) fl MCH 30.9 (25.6-32.2) pg MCHC 32.9 (32.2-35.5) g/dl RDW Std Deviation 42.9 (36.4-46.3) fL Plt Count 213 (182-369) K/mm3 MPV 10.5 (9.4-12.3) fl Neut % (Auto) 72.1 H (34.0-71.1) % Lymph % (Auto) 13.8 L (19.3-51.7) % [place] % (Auto) 10.2 (4.7-12.5) % Eos % (Auto) 3.4 (0.7-5.8) Baso % (Auto) 0.3 (0.1-1.2) % Neut # (Auto) 8.17 H (1.56-6.13) K/mm3 Lymph # (Auto) 1.56 (1.18-3.74) K/mm3 [place] # (Auto) 1.15 H (0.24-0.36) K/mm3 Eos # (Auto) 0.38 H (0.04-0.36) K/mm3 Baso # (Auto) 0.03 (0.01-0.08) K/mm3 Sodium (136-145) mEq/L Potassium (3.5-5.1) mEq/L Chloride (98-107) mEq/L Carbon Dioxide (21-32) mEq/L Anion Gap (5-15) BUN (7-18) mg/dL Creatinine (0.55-1.02) mg/dL Est Cr Clr Drug Dosing mL/min Estimated GFR (MDRD) (>60) mL/min BUN/Creatinine Ratio (14-18) Glucose (83-115) mg/dL POC Glucose (83-110) mg/dL Calcium (8.5-10.1) mg/dL Magnesium (1.8-2.4) mg/dl Med Orders - Current: Current Medications Acetaminophen (Tylenol) 650 mg PO Q4H PRN PRN Reason: Pain (Mild 1-3)/fever Last Admin: 03/01/17 20:13 Dose: 650 mg Hydrocodone Bitart/Acetaminophen (Hamilton 325-5 Mg) 1 tab PO Q4H PRN PRN Reason: Pain (moderate 4-6) Last Admin: 03/02/17 05:46 Dose: 1 tab Albuterol/Ipratropium (Duoneb 3.0-0.5 Mg/3 Ml) 3 ml NEB Q4H PRN PRN Reason: Shortness Of Breath/wheezing Aspirin (Halfprin) 81 mg PO DAILY [facility] Last Admin: 03/02/17 08:51 Dose: 81 mg Bisacodyl (Dulcolax) 5 mg PO DAILY PRN PRN Reason: Constipation Bismuth Subsalicylate (Pepto Bismol) 1 ml PO DAILY PRN PRN Reason: Heartburn Calcium Carbonate/Glycine (Calcium Carbonate) 600 mg PO BIDMEALS [facility] Last Admin: 03/02/17 06:37 Dose: Not Given Chlorhexidine Gluconate (Peridex 0.12% Rinse) 5 ml PO TID [facility] Last Admin: 03/02/17 08:51 Dose: 5 ml Cholecalciferol (Vitamin D3) 1,000 units PO DAILY [facility] Last Admin: 03/02/17 08:51 Dose: 1,000 units Citalopram Hydrobromide (Celexa) 40 mg PO DAILY [facility] Last Admin: 03/02/17 08:51 Dose: 40 mg Dextrose/Water (Dextrose 50% In Water) 50 ml IVPUSH ASDIRECTED PRN PRN Reason: Hypoglycemia Docusate Sodium (Colace) 100 mg PO BID PRN PRN Reason: Constipation Furosemide (Lasix) 20 mg PO DAILY [facility] Last Admin: 09/25/17 08:51 Dose: 20 mg Hydralazine HCl (Apresoline) 10 mg IVPUSH Q4H PRN PRN Reason: Hypertension Hydrochlorothiazide (Hydrochlorothiazide) 12.5 mg PO BIDDIURETIC [facility] Last Admin: 03/02/17 05:46 Dose: 12.5 mg Hydromorphone HCl (Dilaudid) 0.25 mg IVPUSH Q2H PRN PRN Reason: Pain (severe 7-10) Last Admin: 02/26/17 00:20 Dose: 0.25 mg Promethazine HCl 12.5 mg/ (Sodium Chloride) 50.5 mls @ 100 mls/hr IV Q6H PRN PRN Reason: Nausea/Vomiting Insulin Aspart (Novolog) 7 unit SUBCUT QPM [facility] Last Admin: 03/01/17 18:15 Dose: Not Given Insulin Aspart (Novolog) 16 unit SUBCUT QAM [facility] Last Admin: 03/02/17 08:50 Dose: 16 units Insulin Aspart (Novolog) 13 unit SUBCUT WITHLUNCH [facility] Last Admin: 03/01/17 13:48 Dose: 13 units Insulin Detemir (Levemir) 30 unit SUBCUT DAILY [facility] Last Admin: 03/02/17 08:49 Dose: 30 units Levothyroxine Sodium (Levothyroxine) 75 mcg PO DAILY [facility] Last Admin: 03/02/17 08:51 Dose: 75 mcg Loperamide HCl (Imodium) 4 mg PO ONETIME PRN PRN Reason: Diarrhea Lorazepam (Ativan) 0.25 mg IV Q6H PRN PRN Reason: Anxiety Magnesium Hydroxide (Milk Of Magnesia) 30 ml PO DAILY PRN PRN Reason: Constipation Magnesium Sulfate (Pharmacy To Dose - Magnesium Replacement) 1 dose .XX ASDIRECTED [facility] Metoprolol Tartrate (Lopressor) 5 mg IVPUSH Q4H PRN PRN Reason: Tachycardia Morphine Sulfate (Morphine) 2 mg IVPUSH Q2H PRN PRN Reason: Pain Last Admin: 02/25/17 19:03 Dose: 2 mg Multivitamins (Thera) 1 each PO DAILY [facility] Last Admin: 03/02/17 08:51 Dose: 1 each Non-Formulary Medication (Biotin [Biotin]) 10,000 mcg PO DAILY PRN PRN Reason: Dryness Non-Formulary Medication (Hydrocortisone) 1 g TOP TID PRN PRN Reason: Rash Non-Formulary Medication (L Acidophil/B Lactis/B Longum [Florajen3]) 460 mg PO DAILY [facility] Last Admin: 03/02/17 08:51 Dose: Not Given Non-Formulary Medication (Memantine Hcl) 7 mg PO DAILY [facility] Last Admin: 03/02/17 08:55 Dose: Not Given Non-Formulary Medication (Trolamine Salicylate/Aloe Vera) 1 g TOP DAILY PRN PRN Reason: Pain Ondansetron HCl (Zofran) 4 mg IV Q6H PRN PRN Reason: Nausea/Vomiting Polyethylene Glycol (Miralax) 17 gm PO DAILY PRN PRN Reason: Constipation Potassium Chloride (Pharmacy To Dose - Potassium Replacement) 1 dose .XX ASDIRECTED [facility] Psyllium Husk (Metamucil Sugar Free) 2 packet PO QPM [facility] Last Admin: 03/01/17 18:21 Dose: 2 packet Senna/Docusate Sodium (Senna Plus) 1 tab PO BID PRN PRN Reason: Constipation Simethicone (Simethicone) 125 mg PO Q4H PRN PRN Reason: Gas Simvastatin (Zocor) 10 mg PO BEDTIME [facility] Last Admin: 03/01/17 20:13 Dose: 10 mg Temazepam (Restoril) 7.5 mg PO BEDTIME PRN PRN Reason: Sleep Vit A/Vit C/Vit E/Selen/Cu/Zn/Lutei (Icaps Mv) 1 tab PO DAILY [facility] Last Admin: 03/02/17 08:51 Dose: 1 tab Discontinued Medications Ceftriaxone Sodium (Rocephin) 1,000 mg IVPUSH Q24H [facility] Denosumab (Prolia) 60 mg SUBCUT ONETIME ONE Stop: 02/26/17 21:20 Docusate Sodium (Colace) 100 mg PO BID PRN PRN Reason: Constipation Fentanyl (Sublimaze) 25 mcg IVPUSH ONETIME ONE Stop: 02/25/17 16:45 Last Admin: 02/25/17 17:18 Dose: 25 mcg Sodium Chloride (Normal Saline) 1,000 mls @ 75 mls/hr IV ASDIRECTED [facility] Last Admin: 02/27/17 02:32 Dose: 75 mls/hr Ceftriaxone Sodium 1 gm/ (Sodium Chloride) 100 mls @ 200 mls/hr IV Q24H [facility] Last Admin: 02/28/17 14:01 Dose: 200 mls/hr Insulin Aspart (Novolog) 13 unit SUBCUT DAILY [facility] Pneumococcal 13-Valent Conj Vacc (Prevnar 13) 0.5 ml IM .ONCE ONE Stop: 02/26/17 11:15 - Exam Quality Assessment: Reports: DVT Prophylaxis General: Reports: Alert, Oriented, Cooperative, No Acute Distress HEENT: Reports: Pupils Equal, EOMI, Mucous Membr. Moist/[place] Neck: Reports: Supple Lungs: Reports: Clear to Auscultation, Normal Respiratory Effort, Decreased Breath Sounds (bases) 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: Reports: Regular Rate, Regular Rhythm GI/Abdominal Exam: Normal Bowel Sounds, Soft, Non-Tender (Female) Exam: Deferred Rectal (Female) Exam: Deferred Extremities: No Pedal Edema, Normal Capillary Refill, Other (right arm in sling/ swathe brace; distally CMS is +, radial pulses 2+ and = bilat. LE without edema , pedal pulses 2+ and = bilat) Neurological: Reports: No New Focal Deficit Psy/Mental Status: Reports: Alert, Normal Affect, Normal Mood *Q Meaningful Use (DIS) - VTE *Q VTE Criteria *Q: - Stroke *Q Stroke Criteria *Q: - AMI *Q AMI Criteria *Q:
[2017-03-02] MEDS ORDERED: Pneumococcal 13-Valent Conjugate Vaccine 0.5 ML Syringe IM ONE (11:53)
== END 2017-03-02 12:42 | DRG 563 ==
LOC: JD.ED 16:10 → JD.MS 18:42
PROVIDERS: ADMIT Internal Medicine; ATTEND Internal Medicine
DX: I24.9 Acute ischemic heart disease, unspecified (principal); I11.9 Hypertensive heart disease without heart failure; S42.291A Other displaced fracture of upper end of right humerus, initial encounter for closed fracture; S42.201A Unspecified fracture of upper end of right humerus, initial encounter for closed fracture; W18.30XA Fall on same level, unspecified, initial encounter; N39.0 Urinary tract infection, site not specified; S32.591A Other specified fracture of right pubis, initial encounter for closed fracture; Y92.000 Kitchen of unspecified non-institutional (private) residence as the place of occurrence of the external cause; E10.9 Type 1 diabetes mellitus without complications; W17.89XA Other fall from one level to another, initial encounter; Z91.81 History of falling; S00.03XA Contusion of scalp, initial encounter; N28.9 Disorder of kidney and ureter, unspecified; R79.1 Abnormal coagulation profile; M19.90 Unspecified osteoarthritis, unspecified site; Z79.4 Long term (current) use of insulin; E78.5 Hyperlipidemia, unspecified; Z96.642 Presence of left artificial hip joint; M81.0 Age-related osteoporosis without current pathological fracture; E11.9 Type 2 diabetes mellitus without complications; Z79.82 Long term (current) use of aspirin; Z79.899 Other long term (current) drug therapy; F03.90 Unspecified dementia, unspecified severity, without behavioral disturbance, psychotic disturbance, mood disturbance, and anxiety; F32.9 Major depressive disorder, single episode, unspecified; H54.7 Unspecified visual loss; Z66 Do not resuscitate; S09.90XA Unspecified injury of head, initial encounter; I10 Essential (primary) hypertension; I25.10 Atherosclerotic heart disease of native coronary artery without angina pectoris; W01.198A Fall on same level from slipping, tripping and stumbling with subsequent striking against other object, initial encounter; Y92.89 Other specified places as the place of occurrence of the external cause; Z23 Encounter for immunization
CPT/HCPCS: 36415; 70450; 71010; 73030; 73060; 73080; 80053; 82553; 84484; 85025; 93005; 96374; 99284; 99285; A9270 ×2; J3010; 72170; 72170-26; 80048; 81001; 82306; 82962; 83036; 83735; 84443; 87086; 87641; 90670; 96375; 97110-GP; 97116-GP; 97162-GP; 97166-GO; 97530-GO; 99283; G0009; J0696; J1170; J1815-GY; J2270; J7030; J7040

== ENCOUNTER 2020-04-11 15:44 | Emergency (ER) | payer MEDICARE, OTHER ==
--- NOTE | 2020-04-11 17:49 | EDM.PDOC ---
ED HPI GENERAL MEDICAL PROBLEM - General Chief Complaint: Lower Extremity Injury/Pain Stated Complaint: [facility] Time Seen by Provider: 04/11/20 16:53 Source of Information: Reports: Patient, EMS, RN Notes Reviewed - History of Present Illness INITIAL COMMENTS - FREE TEXT/NARRATIVE: 89 yr old female fell earlier today, had R hip pain initially. Upon arrival to ED the pain was gone. She also denies hip or other pain at time of my exam. No chest, abd or other discomfort. Does not feel weak or lightheaded. No recent vomiting or diarrhea. Not sure how or why she fell. Treatments INTRAMURAL DIRECTOR: Reports: Other (see below) Other Treatments INTRAMURAL DIRECTOR: 100mcg fent, 2 mg zofran - Related Data Allergies Allergy/AdvReac Type Severity Reaction Status Date / Time No Known Allergies Allergy Verified 04/11/20 15:54 Home Meds: Home Meds Acetaminophen [Tylenol] 650 mg PO ASDIRECTED 04/11/20 [History] Bacillus Coagulans [Probiotic] 1 tab PO DAILY 04/11/20 [History] Cholecalciferol (Vitamin D3) [Vitamin D3] 2,000 units PO DAILY 04/11/20 [History] Furosemide [Lasix] 40 mg PO DAILY 04/11/20 [History] Insulin Glarg,Human.Rec.Analog [Lantus] 10 unit SUBCUT DAILY 04/11/20 [History] Lactase [Lactose Fast Acting] 1 tab PO ASDIRECTED PRN 04/11/20 [History] Levothyroxine [Synthroid] 88 mcg PO DAILY 04/11/20 [History] Loperamide HCl [Imodium A-D] 1 tab PO ASDIRECTED PRN 04/11/20 [History] Potassium Chloride 20 meq PO BID 04/11/20 [History] Psyllium Husk/Aspartame [Metamucil Fiber Singles Packet] 1 dose PO ASDIRECTED PRN 04/11/20 [History] Sertraline [Zoloft] 50 mg PO DAILY 04/11/20 [History] Past Medical History HEENT History: Reports: Cataract, Impaired Vision Other HEENT History: wears glasses 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 History: Reports: CAD, Hypertension Respiratory History: Reports: None Gastrointestinal History: Reports: Chronic Constipation, Diverticulosis Genitourinary History: Reports: None 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: Reports: Musculoskeletal History: Reports: Osteoarthritis Neurological History: Reports: None Psychiatric History: Reports: Anxiety, Dementia Endocrine/Metabolic History: Reports: Diabetes, Type I Hematologic History: Reports: None Dermatologic History: Reports: None - Infectious Disease History Infectious Disease History: Reports: Shingles - Past Surgical History GI Surgical History: Reports: Cholecystectomy Female Surgical History: Reports: None Neurological Surgical History: Reports: None Musculoskeletal Surgical History: Reports: Joint Replacement Other Musculoskeletal Surgeries/Procedures:: left hip Social & Family History - Family History Family Medical History: Noncontributory Oncologic: Reports: Breast, Esophageal, Leukemia, Pancreatic - Tobacco Use Tobacco Use Status *Q: Never Tobacco User - Caffeine Use Caffeine Use: Reports: Coffee - Recreational Drug Use Recreational Drug Use: No Review of Systems - Review of Systems Review Of Systems: See Below Constitutional: Denies: Fever Eyes: Reports: No Symptoms Ears: Reports: No Symptoms Nose: Reports: No Symptoms Mouth/Throat: Reports: No Symptoms Respiratory: Denies: Shortness of Breath 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: Denies: Chest Pain GI/Abdominal: Denies: Abdominal Pain, Diarrhea, Nausea, Vomiting Musculoskeletal: Reports: Joint Pain (R hip, gone). Denies: Neck Pain, Back Pain, Leg Pain Skin: Reports: Bruising (a few scatter bruises unknown age bilat arms) ED EXAM, GENERAL - Physical Exam Exam: See Below General Appearance: Alert, No Apparent Distress Eye Exam: Bilateral Eye: PERRL Head: Atraumatic. No: Facial Swelling, Facial Tenderness Neck: Supple, Non-Tender Respiratory/Chest: No Respiratory Distress, Lungs Clear, Normal Breath Sounds 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: Regular Rate, Rhythm GI/Abdominal: Soft, Non-Tender Back Exam: No: Paraspinal Tenderness, Vertebral Tenderness Extremities: Non-Tender, Other (good ROM upper and lower extrem. ) Neurological: Alert, Oriented, No Motor/Sensory Deficits Skin Exam: Warm, Dry, Normal Color Course - Vital Signs Last Recorded V/S: Last Vital Signs Temp 97.0 F 04/11/20 15:49 Pulse 70 04/11/20 18:11 Resp 20 04/11/20 15:49 BP 120/73 04/11/20 18:11 Pulse Ox 97 04/11/20 18:11 - Orders/Labs/Meds Orders: Active Orders 24 hr Category Date Time Status Hip Min 2V or 3V w Pelvis Rt [CR] Stat Exams 04/11/20 17:09 Taken - Re-Assessments/Exams Free Text/Narrative Re-Assessment/Exam: 04/11/20 18:53 X rays of hip do not show acute fx, pelvis also shows no fx. Departure - Departure Time of Disposition: 17:47 Disposition: Home, Self-Care 01 Condition: Fair Clinical Impression: Fall Qualifiers: Encounter type: initial encounter Qualified Code(s): W19.XXXA - Unspecified fall, initial encounter Contusion of hip Qualifiers: Encounter type: initial encounter Laterality: right Qualified Code(s): S70.01XA - Contusion of right hip, initial encounter - Discharge Information Instructions: Contusion Referrals: Zena Bowie TURBO ELECTRIC OPERATOR [Primary Care Provider] - Forms: ED Department Discharge Additional Instructions: X rays of your R hip and pelvis look good. There is no visible fracture. Use walker if needed to help your balance and to keep safe from more falling. Continue current medications. Follow up clinic as needed. Return to ED as needed if symptoms worsening in any way. Sepsis Event Note (ED) - Evaluation Sepsis Screening Result: No Definite Risk - Focused Exam Vital Signs: Vital Signs Temp Pulse Resp BP Pulse Ox 04/11/20 18:11 70 120/73 97 04/11/20 15:49 97.0 F 93 20 133/67 94 L - My Orders Last 24 Hours: My Active Orders 04/11/20 17:09 Hip Min 2V or 3V w Pelvis Rt [CR] Stat - Assessment/Plan Last 24 Hours: My Active Orders 04/11/20 17:09 Hip Min 2V or 3V w Pelvis Rt [CR] Stat
[2020-04-11 18:13] VITALS: BP 120/73; PULSE 70
--- NOTE | 2020-04-12 08:47 | CR ---
PROCEDURE INFORMATION: Exam: XR Right Hip with Pelvis when Performed Exam date and time: 04/11/2020 5:22 PM Age: 89 years old Clinical indication: Hip pain and pelvic pain; Right hip; Patient HX: Fall, hip/pelvis px TECHNIQUE: Imaging protocol: XR Right hip with pelvis when performed. Views: 2 or 3 views. COMPARISON: DX Pelvis 1V or 2V 02/26/2017 4:04 PM FINDINGS: Bones/joints: Partially imaged left hip arthroplasty. Suggestion of sub deformity right femoral neck. Degenerative changes lumbosacral spine. Extensive heterotopic bone left hip. Soft tissues: Unremarkable. IMPRESSION: Suggestion of some deformity at the right femoral head/neck junction. Underlying femoral neck fracture not excluded. Recommend correlation with CT imaging to further assess. Thank you for allowing us to participate in the care of your patient. Dictated and Authenticated by: Tavares Bhatti MD 04/11/2020 6:51 PM Central Time ([place] & [place]) [place]
--- NOTE | 2020-04-12 09:02 | CT ---
PROCEDURE INFORMATION: Exam: CT Right Lower Extremity Without Contrast, Hip Exam date and time: 04/11/2020 7:37 PM Age: 89 years old Clinical indication: Pain; Hip; Right TECHNIQUE: Imaging protocol: CT of the Right lower extremity without contrast was performed. Exam focused on the hip. COMPARISON: DX Hip Min 2V or 3V w Pelvis Rt 04/11/2020 5:22 PM FINDINGS: Bones/joints: Moderate to advanced osteoarthritis of the right hip. This is evidenced by joint space narrowing and prominent spurring. No definite right femoral neck fracture as questioned. Old fractures right superior and inferior pubic rami. Soft tissues: Normal. Vasculature: Vascular calcifications. Bladder: The bladder is partially imaged and markedly distended. IMPRESSION: 1. No acute right hip fracture. 2. Moderate to advanced right hip osteoarthritis. 3. Markedly distended bladder. Thank you for allowing us to participate in the care of your patient. Dictated and Authenticated by: Tavares Bhatti MD 04/11/2020 9:22 PM Central Time ([place] & [place]) [place]
== END 2020-04-11 21:48 | disposition home or self-care (01) ==
LOC: JD.ED 15:44
DX: S70.01XA Contusion of right hip, initial encounter (principal); I25.10 Atherosclerotic heart disease of native coronary artery without angina pectoris; I10 Essential (primary) hypertension; F03.90 Unspecified dementia, unspecified severity, without behavioral disturbance, psychotic disturbance, mood disturbance, and anxiety; F41.9 Anxiety disorder, unspecified; E10.9 Type 1 diabetes mellitus without complications; Z79.899 Other long term (current) drug therapy; W19.XXXA Unspecified fall, initial encounter
CPT/HCPCS: 73502-26-RT; 73502-RT; 73700-26-RT; 73700-RT; 99284-25

== ENCOUNTER 2020-04-21 14:37 | Emergency (ER) | payer MEDICARE, OTHER ==
[2020-04-21] MEDS ORDERED: Sodium Chloride 0.9% 10 ML Syringe FLUSH PRN (15:47)
[2020-04-21] MEDS ORDERED: Sodium Chloride 0.9% 1,000 ML IV ONE (15:57)
--- NOTE | 2020-04-21 16:00 | EDM.PDOC ---
ED HPI GENERAL MEDICAL PROBLEM - General Chief Complaint: Gastrointestinal Problem Stated Complaint: [facility] Time Seen by Provider: 04/21/20 15:46 Source of Information: Reports: Patient, RN Notes Reviewed History Limitations: Reports: No Limitations - History of Present Illness INITIAL COMMENTS - FREE TEXT/NARRATIVE: Patient is an 89-year-old female who is brought into the ED today via [facility] for the evaluation of being weak, and being unable to walk. It was reported from the [facility], which is an assisted living in [facility], that the patient was not eating, and she was too weak to walk. Upon arrival the ambulance states she was able to pivot transfer with minimal assistance, and states that she is able to walk. Patient is denying any weakness, and she does assist us in turning from side to side on the ED cot. She complains mainly of her "butt hurting". She states she has been having a few episodes of diarrhea, and that her rectum hurts. She states this is the cause of most of her discomfort today. She states that she just not feeling well enough in the past few days to want to eat much at all. But she is not having any abdomen pain or vomiting. There was an area of concern on her coccyx for a possible pressure ulcer. Nursing staff did place a pillow at the time of triage, to help provide some padding, and this did seem to get a little bit better with time. Patient denies any other sick-like symptoms, fever/chills, cough/shortness of breath, nausea/vomiting/diarrhea. Review of the notes, show no vital abnormalities as well. Blood pressure at in the ER is mildly low at 109/53. Sacral Pain Score (Numeric/FACES): 5 - Related Data Allergies Allergy/AdvReac Type Severity Reaction Status Date / Time No Known Allergies Allergy Verified 04/21/20 14:47 Home Meds: Home Meds Acetaminophen [Tylenol] 650 mg PO ASDIRECTED 04/11/20 [History] Bacillus Coagulans [Probiotic] 1 tab PO DAILY 04/11/20 [History] Furosemide [Lasix] 40 mg PO DAILY 04/11/20 [History] Insulin Glarg,Human.Rec.Analog [Lantus] 10 unit SUBCUT DAILY 04/11/20 [History] Lactase [Lactose Fast Acting] 1 tab PO ASDIRECTED PRN 04/11/20 [History] Levothyroxine [Synthroid] 88 mcg PO DAILY 04/11/20 [History] Loperamide HCl [Imodium A-D] 1 tab PO ASDIRECTED PRN 04/11/20 [History] Potassium Chloride 20 meq PO TID 04/11/20 [History] Psyllium Husk/Aspartame [Metamucil Fiber Singles Packet] 1 dose PO ASDIRECTED PRN 04/11/20 [History] Sertraline [Zoloft] 50 mg PO DAILY 04/11/20 [History] Biotin 1,000 mcg PO DAILY PRN 04/21/20 [History] Magnesium Hydroxide [Milk of Magnesia] 30 ml PO DAILY PRN 04/21/20 [History] Multivitamin [Gummi Bear Multivitamin] 1 tab PO DAILY 04/21/20 [History] Simethicone [Gas Relief] 125 mg PO Q4HR PRN 04/21/20 [History] Trolamine Salicylate/Aloe Vera [Aspercreme 10%] 1 applic TOP TID PRN 04/21/20 [H istory] bisacodyL [Dulcolax] 1 dose RECTAL DAILY PRN 04/21/20 [History] Past Medical History HEENT History: Reports: Cataract, Impaired Vision Other HEENT History: wears glasses 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 History: Reports: CAD, Hypertension Gastrointestinal History: Reports: Chronic Constipation, Diverticulosis 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 History: Reports: Musculoskeletal History: Reports: Osteoarthritis Psychiatric History: Reports: Anxiety, Dementia Endocrine/Metabolic History: Reports: Diabetes, Type I - Infectious Disease History Infectious Disease History: Reports: Shingles - Past Surgical History HEENT Surgical History: Reports: Tonsillectomy GI Surgical History: Reports: Cholecystectomy Female Surgical History: Reports: None Endocrine Surgical History: Reports: None Neurological Surgical History: Reports: None Musculoskeletal Surgical History: Reports: Joint Replacement Other Musculoskeletal Surgeries/Procedures:: left hip Social & Family History - Family History Family Medical History: No Pertinent Family History Oncologic: Reports: Breast, Esophageal, Leukemia, Pancreatic - Tobacco Use Tobacco Use Status *Q: Never Tobacco User Second Hand Smoke Exposure: No - Caffeine Use Caffeine Use: Reports: Coffee - Recreational Drug Use Recreational Drug Use: No ED ROS GENERAL - Review of Systems Review Of Systems: Comprehensive ROS is negative, except as noted in HPI. ED EXAM, GENERAL - Physical Exam Exam: See Below Exam Limited By: No Limitations General Appearance: Alert, WD/WN, No Apparent Distress Throat/Mouth: Normal Inspection, Normal Lips, Normal Teeth, Normal Gums, Normal Oropharynx, Normal Voice, No Airway Compromise Head: Atraumatic, Normocephalic Respiratory/Chest: No Respiratory Distress, Lungs Clear, Normal Breath Sounds, No Accessory Muscle Use, Chest Non-Tender 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: Normal Peripheral Pulses, Regular Rate, Rhythm, No Murmur Peripheral Pulses: 2+: Radial (L), Radial (R) GI/Abdominal: Normal Bowel Sounds, Soft, Non-Tender, No Distention, No Mass Rectal (Female) Exam: Normal Exam, Tenderness (mild tenderness to outer rectum, patient states that this does hurt. There is a mild amount of dried stool to right cheek and the area does appear erythematous.), Other (There is some redness to the coccyx down to the top of th rectum; would be consistent with early pressure ulcer in nature.) Extremities: Normal Inspection, Normal Capillary Refill Neurological: Alert, Oriented, Normal Cognition, No Motor/Sensory Deficits Psychiatric: Normal Affect, Normal Mood Skin Exam: Warm, Dry, Intact, Normal Color, No Rash, Other (see back assessment for further detail of rectal skin/tailbone skin) Course - Vital Signs Last Recorded V/S: Last Vital Signs Temp 97.6 F 04/21/20 14:42 Pulse 94 04/21/20 14:42 Resp 16 04/21/20 14:42 BP 109/53 L 04/21/20 14:42 Pulse Ox 100 04/21/20 14:42 - Orders/Labs/Meds Orders: Active Orders 24 hr Category Date Time Status Peripheral IV Care [RC] . DIRECTED Care 04/21/20 15:48 Active Sodium Chloride 0.9% [Normal Saline] 1,000 ml Med 04/21/20 15:57 Active IV ONETIME Sodium Chloride 0.9% [Saline Flush] Med 04/21/20 15:47 Active 10 ml FLUSH ASDIRECTED PRN Peripheral IV Insertion Adult [OM.PC] Routine Oth 04/21/20 15:47 Ordered Medication Orders Sodium Chloride (Normal Saline) 1,000 mls @ 500 mls/hr IV ONETIME ONE Stop: 04/21/20 17:56 Last Admin: 04/21/20 16:39 Dose: 500 mls/hr Documented by: THOMAS Sodium Chloride (Saline Flush) 10 ml FLUSH ASDIRECTED PRN PRN Reason: Keep Vein Open Last Admin: 04/21/20 16:39 Dose: 10 ml Documented by: THOMAS Labs: Laboratory Tests 04/21/20 04/21/20 04/21/20 Range/Units 15:55 16:14 16:14 WBC 11.72 H (3.98-10.04) K/mm3 RBC 3.52 L (3.98-5.22) M/mm3 Hgb 10.9 L (11.2-15.7) gm/dl Hct 34.5 (34.1-44.9) % MCV 98.0 H (79.4-94.8) fl MCH 31.0 (25.6-32.2) pg MCHC 31.6 L (32.2-35.5) g/dl RDW Std Deviation 49.7 H (36.4-46.3) fL Plt Count 163 L (182-369) K/mm3 MPV 11.2 (9.4-12.3) fl Neut % (Auto) 73.6 H (34.0-71.1) % Lymph % (Auto) 16.6 L (19.3-51.7) % Luce % (Auto) 8.5 (4.7-12.5) % Eos % (Auto) 0.8 (0.7-5.8) Baso % (Auto) 0.2 (0.1-1.2) % Neut # (Auto) 8.63 H (1.56-6.13) K/mm3 Lymph # (Auto) 1.95 (1.18-3.74) K/mm3 Luce # (Auto) 1.00 H (0.24-0.36) K/mm3 Eos # (Auto) 0.09 (0.04-0.36) K/mm3 Baso # (Auto) 0.02 (0.01-0.08) K/mm3 Manual Slide Review Abnormal smear Sodium 140 (136-145) mEq/L Potassium 4.4 (3.5-5.1) mEq/L Chloride 107 (98-107) mEq/L Carbon Dioxide 25 (21-32) mEq/L Anion Gap 12.4 (5-15) BUN 16 (7-18) mg/dL Creatinine 1.6 H (0.55-1.02) mg/dL Est Cr Clr Drug Dosing TNP Estimated GFR (MDRD) 30 (>60) mL/min BUN/Creatinine Ratio 10.0 L (14-18) Glucose 102 (83-115) mg/dL Calcium 8.3 L (8.5-10.1) mg/dL Magnesium 1.8 (1.8-2.4) mg/dl Total Bilirubin 0.4 (0.2-1.0) mg/dL AST 22 (15-37) U/L ALT 21 (14-59) U/L Alkaline Phosphatase 114 (46-116) U/L Total Protein 5.6 L (6.4-8.2) g/dl Albumin 2.0 L (3.4-5.0) g/dl Globulin 3.6 gm/dL Albumin/Globulin Ratio 0.6 L (1-2) Urine Color Yellow (Yellow) Urine Appearance Clear (Clear) Urine pH 6.0 (5.0-8.0) Ur Specific Mcleod 1.020 (1.005-1.030) Urine Protein Negative (Negative) Urine Glucose (UA) Negative (Negative) Urine Ketones Negative (Negative) Urine Occult Blood Negative (Negative) Urine Nitrite Negative (Negative) Urine Bilirubin Negative (Negative) Urine Urobilinogen 0.2 (0.2-1.0) Ur Leukocyte Esterase Negative (Negative) Urine RBC Not seen (0-5) /hpf Urine WBC 0-5 (0-5) /hpf Ur Squamous Epith Cells 0-5 (0-5) /hpf Urine Bacteria Few (FEW) /hpf Urine Mucus Not seen (FEW) /hpf Meds: Medications Generic Name Dose Route Start Last Admin Trade Name Freq PRN Reason Stop Dose Admin Sodium Chloride 1,000 mls @ 500 mls/hr 04/21/20 15:57 04/21/20 16:39 Normal Saline IV 04/21/20 17:56 500 mls/hr ONETIME ONE Administration Sodium Chloride 10 ml 04/21/20 15:47 04/21/20 16:39 Saline Flush FLUSH 10 ml ASDIRECTED PRN Administration Keep Vein Open - Re-Assessments/Exams Free Text/Narrative Re-Assessment/Exam: 04/21/20 16:01 Patient presents to the ED for the evaluation of her ongoing weakness per report from the group home. We will get some basic labs, and address her possible pressure ulcer area of concern. She will get IV fluids at 500mls/hr for her lower BP readings. 04/21/20 17:08 She is labs have resulted, and demonstrate no focal abnormalities whatsoever. We will get her home with general recommendations and have her follow-up with regular care provider as needed. 04/21/20 17:29 Patient was up in the hallway, and ambulating well with nursing staff. The nurse states that it did take her a little bit of coaxing to get her up, but when she is up she has no issues whatsoever. Departure - Departure Time of Disposition: 17:08 Disposition: Home, Self-Care 01 Condition: Good Clinical Impression: Borderline low blood pressure determined by examination Diarrhea Qualifiers: Diarrhea type: unspecified type Qualified Code(s): R19.7 - Diarrhea, unspecified - Discharge Information *PRESCRIPTION DRUG MONITORING PROGRAM REVIEWED*: No *COPY OF PRESCRIPTION DRUG MONITORING REPORT IN PATIENT MARK: No Instructions: Food Choices to Help Relieve Diarrhea, Adult, Probiotics Referrals: PCP,None [Primary Care Provider] - Forms: ED Department Discharge Additional Instructions: You have been evaluated in the ED for diarrhea/ reported weakness. You have received IV fluid in the ED to help with the dehydration from the diarrhea. Over the next 24-48 hours please try to limit diet to clear liquids and advance as tolerate to a bland diet to alleviate symptoms of nausea/vomiting/diarrhea. Please return to the ED if your symptoms should change or worsen. Sepsis Event Note (ED) - Evaluation Sepsis Screening Result: No Definite Risk - Focused Exam Vital Signs: Vital Signs Temp Pulse Resp BP Pulse Ox 04/21/20 14:42 97.6 F 94 16 109/53 L 100 - My Orders Last 24 Hours: My Active Orders 04/21/20 15:47 Sodium Chloride 0.9% [Saline Flush] 10 ml FLUSH ASDIRECTED PRN Peripheral IV Insertion Adult [OM.PC] Routine 04/21/20 15:48 Peripheral IV Care [RC] . DIRECTED 04/21/20 15:57 Sodium Chloride 0.9% [Normal Saline] 1,000 ml IV ONETIME - Assessment/Plan Last 24 Hours: My Active Orders 04/21/20 15:47 Sodium Chloride 0.9% [Saline Flush] 10 ml FLUSH ASDIRECTED PRN Peripheral IV Insertion Adult [OM.PC] Routine 04/21/20 15:48 Peripheral IV Care [RC] . DIRECTED 04/21/20 15:57 Sodium Chloride 0.9% [Normal Saline] 1,000 ml IV ONETIME
[2020-04-21 18:02] VITALS: BP 130/70; PULSE 69
== END 2020-04-21 19:29 | disposition home or self-care (01) ==
LOC: JD.ED 14:37
DX: I95.9 Hypotension, unspecified (principal); R19.7 Diarrhea, unspecified; I10 Essential (primary) hypertension; I25.10 Atherosclerotic heart disease of native coronary artery without angina pectoris; F03.90 Unspecified dementia, unspecified severity, without behavioral disturbance, psychotic disturbance, mood disturbance, and anxiety; E10.9 Type 1 diabetes mellitus without complications; Z79.899 Other long term (current) drug therapy
CPT/HCPCS: 36415; 80053; 81001; 83735; 85025; 99284; J7030; 99283